=== PATIENT | male | born 1985 | race Caucasian/White ===

== ENCOUNTER 2017-02-10 01:22 | Emergency (ER) | payer MEDICAID ==
[2017-02-10] MEDS ORDERED: NS 1,000 ML IV ONE ×3 (01:26→03:07)
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
[2017-02-10] MEDS ORDERED: IBUPROFEN 800 MG TAB PO ONE (02:01)
[2017-02-10] MEDS ORDERED: ACETAMINOPHEN 500 MG TAB ONE (02:01)
[2017-02-10] MEDS ORDERED: ACETAMINOPHEN 500 MG TAB PO ONE (02:03)
[2017-02-10] MEDS ORDERED: IBUPROFEN 600 MG TAB PO ONE (02:03)
[2017-02-10 02:06] VITALS: BP 126/93; PULSE 110; RESP 16; O2SAT 100
[2017-02-10 02:25] LABS: ANION GAP 34 mEq/L (8-16); CALCIUM 10.4 mg/dL (8.5-10.4); CARBON DIOXIDE 14 mEq/l (22-31); CHLORIDE 87 mEq/L (97-110); CREATININE 0.7 mg/dL (0.7-1.3); GLOMERULAR FILTRATION RATE > 60; POTASSIUM 5.3 mEq/L (3.5-5.2); SODIUM 135 mEq/L (134-144)
[2017-02-10 02:39] LABS: GLUCOSE 797 mg/dL (70-100)
[2017-02-10 02:40] LABS: COLOR PALE YELLOW; LEUKOCYTE ESTERASE,URINE NEGATIVE (NEGATIVE); NITRITE,URINE NEGATIVE (NEGATIVE)
[2017-02-10 02:45] LABS: MUCUS TRACE /lpf (NONE-1+)
[2017-02-10] MEDS ORDERED: INSULIN REGULAR HUMAN 100 UNIT/ML IVP ONE (03:07)
[2017-02-10] MEDS ORDERED: INSULIN REGULAR HUMAN 100 UNIT, COSIGN. REQUIRED 1 EA in NS 100 ML IV ONE (03:07)
[2017-02-10 03:26] LABS: MAGNESIUM 2.4 mg/dL (1.6-2.3)
[2017-02-10 03:52] LABS: B-HYDROXYBUTYRATE 11.6 mmol/L (0.02-0.27)
[2017-02-11] MEDS ORDERED: ONDANSETRON DISINTEGRATING 4 MG TAB PO PRN (01:58)
[2017-02-11] MEDS ORDERED: ONDANSETRON 4 MG/2 ML VIAL IVP PRN (01:58)
[2017-02-11] MEDS ORDERED: ACETAMINOPHEN 325 MG TAB PO PRN (01:58)
[2017-02-11] MEDS ORDERED: NS 1,000 ML IV SCH (02:00)
[2017-02-11 05:01] LABS: ADD DIFF? YES; ADD MORPH? NO; ADD SCAN? NO; ATYPICAL LYMPHOCYTE FLAG 10 (0-99); FRAGMENT RBC FLAG 0 (0-99); HEMATOCRIT 31.1 % (40.0-51.0); HEMOGLOBIN 9.6 g/dL (13.7-17.5); LEFT SHIFT FLG 20 (0-99); LIPEMIA HEMOLYSIS FLAG 80 (0-99); MEAN CELL HEMOGLOBIN 26.9 pg (27.9-34.1); MEAN CELL HEMOGLOBIN CONCENTR. 30.9 g/dL (32.4-36.7); MEAN CELL VOLUME 87.1 fL (81.5-99.8); MEAN PLATELET VOLUME 10.2 fL (8.7-11.7); PLATELET CLUMPS FLAG 0 (0-99); PLATELET COUNT 397 10^3/uL (150-400); RED BLOOD CELL COUNT 3.57 10^6/uL (4.40-6.38); RED CELL DISTRIBUTION WIDTH 14.8 % (11.5-15.2)
[2017-02-11 05:22] LABS: ANION GAP 34 mEq/L (8-16); CALCIUM 8.5 mg/dL (8.5-10.4); CHLORIDE 108 mEq/L (97-110); CREATININE 1.1 mg/dL (0.7-1.3); GLOMERULAR FILTRATION RATE > 60; SODIUM 148 mEq/L (134-144)
[2017-02-11 05:32] LABS: CARBON DIOXIDE 6 mEq/l (22-31); GLUCOSE 516 mg/dL (70-100)
[2017-02-11 05:41] LABS: HYPOCHROMIA 1+
[2017-02-11 05:42] LABS: PLATELET ESTIMATE ADEQUATE (ADEQ)
[2017-02-13] MEDS ORDERED: D50W 25 GM/50 ML SYR IVP PRN (23:01)
[2017-02-14] MEDS ORDERED: INSULIN LISPRO 100 UNIT/ML SC SCH (08:00)
[2017-02-14] MEDS ORDERED: INSULIN GLARGINE 100 UNITS/ML SYRINGE SC SCH (09:00)
== END 2017-02-10 03:32 | disposition left against medical advice (07) ==
LOC: EDUNIT#
DX: R52 Pain, unspecified (principal); E13.10 Other specified diabetes mellitus with ketoacidosis without coma; Z91.040 Latex allergy status; Z79.4 Long term (current) use of insulin
CPT/HCPCS: 80305; J1815

== ENCOUNTER 2017-02-11 00:41 | Inpatient (IN) | payer MEDICAID ==
[2017-02-11] MEDS ORDERED: INSULIN REGULAR HUMAN 100 UNIT/ML IVP ONE (00:54)
[2017-02-11] MEDS ORDERED: INSULIN REGULAR HUMAN 100 UNIT, COSIGN. REQUIRED 1 EA in NS 100 ML IV ONE (00:54)
[2017-02-11] MEDS ORDERED: NS 1,000 ML IV ONE ×4 (00:54→03:30)
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
[2017-02-11 01:07] LABS: ADD DIFF? YES; ADD MORPH? NO; ADD SCAN? NO; ATYPICAL LYMPHOCYTE FLAG 0 (0-99); FRAGMENT RBC FLAG 0 (0-99); HEMATOCRIT 38.1 % (40.0-51.0); HEMOGLOBIN 11.3 g/dL (13.7-17.5); LEFT SHIFT FLG 20 (0-99); LIPEMIA HEMOLYSIS FLAG 70 (0-99); MEAN CELL HEMOGLOBIN CONCENTR. 29.7 g/dL (32.4-36.7); MEAN CELL VOLUME 91.1 fL (81.5-99.8); MEAN PLATELET VOLUME 10.6 fL (8.7-11.7); PLATELET CLUMPS FLAG 0 (0-99); PLATELET COUNT 571 10^3/uL (150-400); RED BLOOD CELL COUNT 4.18 10^6/uL (4.40-6.38); RED CELL DISTRIBUTION WIDTH 15.4 % (11.5-15.2)
[2017-02-11 01:16] LABS: INR 1.07 (0.83-1.16); PROTIME(PATIENT) 13.8 SEC (12.0-15.0)
[2017-02-11 01:17] LABS: APTT 26.7 SEC (23.0-38.0)
[2017-02-11 01:18] LABS: CALCIUM 10.1 mg/dL (8.5-10.4); CHLORIDE 93 mEq/L (97-110); CREATININE 1.4 mg/dL (0.7-1.3); ETHANOL SERUM < 10 mg/dL (0-10); GLOMERULAR FILTRATION RATE 60; SODIUM 141 mEq/L (134-144)
[2017-02-11 01:35] LABS: PLATELET ESTIMATE INCREASED (ADEQ)
[2017-02-11 01:37] LABS: CARBON DIOXIDE < 5 mEq/l (22-31); POTASSIUM 6.9 mEq/L (3.5-5.2)
[2017-02-11 01:38] LABS: GLUCOSE 891 mg/dL (70-100)
--- NOTE | 2017-02-11 02:17 | PDGENHP ---
History and Physical - Chief Complaint Nausea - History of Present Illness 31 yo M w/ T1DM presents with nausea and found to have severe hyperglycemia. Patient was altered and vomited several times today and eventually EMS was called. His BG was undetectably high for EMS. Of note, he was seen in the ED yesterday but left AMA prior to receiving insulin or fluids. Work-up in the ED notable from severe hyperglycemia and AGMA in a clinical picture c/w DKA, most likely due to lack of insulin as patient has not had insulin for 3 days. On my evaluation patient is somnolent and not able to provide additional history. History Information - Allergies/Home Medication List Allergies/Adverse Reactions: escitalopram [From Lexapro] Allergy (Verified 02/10/17 02:24) latex Allergy (Verified 02/10/17 02:24) quetiapine [From Seroquel] Allergy (Verified 02/10/17 02:24) Home Medications: Insulin Aspart [novoLOG] unit SC AC 02/10/17 [Last Taken Unknown] Insulin Detemir [Levemir] 100 unit SQ 02/10/17 [Last Taken Unknown] I have personally reviewed and updated: family history, medical history - Past Medical History diabetes type 1 - Social History Smoking Status: Unknown if ever smoked Drug Use: Other (Amphetamines on Utox) Review of Systems Review of Systems: ROS: 10pt was reviewed & negative except for what was stated in HPI & below Physical Exam Physical Exam: Temp Pulse Resp BP Pulse Ox 37.0 C 121 H 24 H 105/62 100 02/11/17 00:45 02/11/17 00:45 02/11/17 00:45 02/11/17 00:45 02/11/17 00:55 Constitutional: no apparent distress, other (Somnolent) Eyes: PERRL, EOMI Ears, Nose, Mouth, Throat: moist mucous membranes, no oral mucosal ulcers Cardiovascular: no murmur, rub, or gallop, tachycardia Respiratory: no respiratory distress, no rales or rhonchi Gastrointestinal: normoactive bowel sounds, soft, non-tender abdomen Skin: other (Several necrotic appearing lesions on LE's) Neurologic: sensation intact bilaterally, other (Somnolent) Psychiatric: encephalopathic Lab Data & Imaging Review 02/11/17 00:48 02/11/17 00:48 WBC 24.27 10^3/uL (3.80-9.50) H 02/11/17 00:48 RBC 4.18 10^6/uL (4.40-6.38) L 02/11/17 00:48 Hgb 11.3 g/dL (13.7-17.5) L 02/11/17 00:48 POC Hgb 14.3 gm/dL (13.7-17.5) 10 00:42 Hct 38.1 % (40.0-51.0) L 02/11/17 00:48 POC Hct 42 % (40-51) 02/11/17 00:42 MCV 91.1 fL (81.5-99.8) 02/11/17 00:48 MCH 27.0 pg (27.9-34.1) L 02/11/17 00:48 MCHC 29.7 g/dL (32.4-36.7) L 02/11/17 00:48 RDW 15.4 % (11.5-15.2) H 02/11/17 00:48 Plt Count 571 10^3/uL (150-400) H 02/11/17 00:48 MPV 10.6 fL (8.7-11.7) 02/11/17 00:48 Neut % (Auto) Not Reported 02/11/17 00:48 Lymph % (Auto) Not Reported 02/11/17 00:48 [place] % (Auto) Not Reported 02/11/17 00:48 Eos % (Auto) Not Reported 02/11/17 00:48 Baso % (Auto) Not Reported 02/11/17 00:48 Nucleat RBC Rel Count 0.0 % (0.0-0.2) 02/11/17 00:48 Absolute Neuts (auto) Not Reported 02/11/17 00:48 Absolute Lymphs (auto) Not Reported 02/11/17 00:48 Absolute Monos (auto) Not Reported 02/11/17 00:48 Absolute Eos (auto) Not Reported 02/11/17 00:48 Absolute Basos (auto) Not Reported 02/11/17 00:48 Absolute Nucleated RBC 0.00 10^3/uL (0-0.01) 02/11/17 00:48 Immature Gran % Not Reported 02/11/17 00:48 Seg Neutrophils % 76 % 02/11/17 00:48 Band Neutrophils % 6 % 02/11/17 00:48 Lymphocytes % 11 % 02/11/17 00:48 Monocytes % 6 % 02/11/17 00:48 Basophils % 1 % 02/11/17 00:48 Immature Gran # Not Reported 02/11/17 00:48 Absolute Seg Neuts 18.45 10^/uL (1.70-6.50) H 02/11/17 00:48 Absolute Band Neuts 1.46 10^3/uL (0.00-0.70) H 02/11/17 00:48 Absolute Lymphocytes 2.67 10^3/uL (1.00-3.00) 02/11/17 00:48 Absolute Monocytes 1.46 10^3/uL (0.30-0.80) H 02/11/17 00:48 Absolute Basophils 0.24 10^3/uL (0.02-0.10) H 02/11/17 00:48 RBC/WBC/PLT Morphology NORMAL (NORMAL) 02/11/17 00:48 Platelet Estimate INCREASED (ADEQ) H 02/11/17 00:48 PT 13.8 SEC (12.0-15.0) 02/11/17 00:48 INR 1.07 (0.83-1.16) 02/11/17 00:48 APTT 26.7 SEC (23.0-38.0) 02/11/17 00:48 POC Sodium 134 mEq/L (134-144) 02/11/17 00:42 Sodium 141 mEq/L (134-144) 02/11/17 00:48 POC Potassium 6.5 mEq/L (3.3-5.0) H* 02/11/17 00:42 Potassium 6.9 mEq/L (3.5-5.2) H* 02/11/17 00:48 POC Chloride 102 mEq/L (97-110) 02/11/17 00:42 Chloride 93 mEq/L (97-110) L 02/11/17 00:48 Carbon Dioxide < 5 mEq/l (22-31) L* D 02/11/17 00:48 Anion Gap TNP 02/11/17 00:48 POC BUN 57 mg/dL (7-23) H 02/11/17 00:42 BUN 56 mg/dL (7-23) H 02/11/17 00:48 Creatinine 1.4 mg/dL (0.7-1.3) H D 02/11/17 00:48 POC Creatinine 1.1 mg/dL (0.7-1.3) 02/11/17 00:42 Estimated GFR 60 02/11/17 00:48 Glucose 891 mg/dL (70-100) H* 02/11/17 00:48 POC Glucose > 700 mg/dL (70-100) H* 02/11/17 00:42 Calcium 10.1 mg/dL (8.5-10.4) 02/11/17 00:48 Phosphorus 10.6 mg/dL (2.5-4.5) H D 02/11/17 00:48 Magnesium 3.0 mg/dL (1.6-2.3) H 02/11/17 00:48 Ethyl Alcohol < 10 mg/dL (0-10) 02/11/17 00:48 Visualized and Interpreted Chest x-ray results: Yes Chest X-Ray results: no infiltrate Assessment & Plan Assessment: 31 yo M with T1DM presents w/ DKA. Plan: 1. T1DM w/ acute DKA - Most likely 2/2 insulin deficiency noting patient has not had insulin for 3 days. Initial laboratory work-up notable for BG>800, undetectable CO2, marked leukocytosis, and hyperkalemia. - Admit to ICU w/ DKA protocol 2. Hyperkalemia - Most likely 2/2 insulin deficiency. Will monitor closely while on insulin gtt. - Obtain ECG to evaluate for cardiac complications 3. Leukocytosis - Likely reactive from above, no clear evidence of infection currently but will monitor closely. 4. SEFERINO - Cr 1.4 on admission, likely pre-renal azotemia in setting of severe dehydration from osmolar diuresis. Aggressive IVF and monitor BMP. 5. Acute encephalopathy, suspect metabolic - Likely 2/2 DKA, monitor. Diet - NPO Code - Full Ppx - SCDs Dispo - Admit to ICU, observation status for DKA protocol
[2017-02-11 02:21] LABS: B-HYDROXYBUTYRATE > 18.00 mmol/L (0.02-0.27)
[2017-02-11] MEDS ORDERED: INSULIN REGULAR HUMAN 100 UNIT in NS 100 ML IV SCH (02:30)
[2017-02-11] MEDS ORDERED: INSULIN REGULAR HUMAN 100 UNIT/ML IVP PRN (02:30)
[2017-02-11] MEDS ORDERED: D10W 250 ML PRN HYPOGLYCEMIA IV (02:30)
[2017-02-11] MEDS ORDERED: ONDANSETRON DISINTEGRATING 4 MG TAB PO PRN (02:37)
[2017-02-11] MEDS ORDERED: ONDANSETRON 4 MG/2 ML VIAL IVP PRN (02:37)
[2017-02-11] MEDS ORDERED: D5W 1/2 NS 1,000 ML IV SCH (02:47)
[2017-02-11] MEDS ORDERED: D5W 1,000 ML IV SCH (02:47)
[2017-02-11 03:19] LABS: CALCIUM 8.9 mg/dL (8.5-10.4); CHLORIDE 101 mEq/L (97-110); CREATININE 1.2 mg/dL (0.7-1.3); GLOMERULAR FILTRATION RATE > 60; POTASSIUM 5.8 mEq/L (3.5-5.2); SODIUM 146 mEq/L (134-144)
[2017-02-11 03:33] LABS: CARBON DIOXIDE < 5 mEq/l (22-31)
[2017-02-11 03:34] LABS: GLUCOSE 711 mg/dL (70-100)
[2017-02-11] MEDS ORDERED: PROTOCOL MAGNESIUM 1 DOSE IV PRN (03:50)
[2017-02-11] MEDS ORDERED: PROTOCOL POTASSIUM 1 DOSE MISC PRN ×2 (03:50)
--- NOTE | 2017-02-11 05:04 | CPEKG ---
Heart Rate: 121 RR Interval: 496 P-R Interval: 160 QRSD Interval: 88 QT Interval: 324 QTC Interval: 460 P [place]: 71 QRS [place]: 79 T Wave [place]: 44 EKG Severity - ABNORMAL ECG - EKG Impression: SINUS TACHYCARDIA EKG Impression: PROBABLE LEFT ATRIAL ABNORMALITY EKG Impression: PROBABLE LEFT VENTRICULAR HYPERTROPHY EKG Impression: AGREE WITH ABOVE Electronically Signed By: Solo Beasley 11-Feb-2017 08:16:38
[2017-02-11] MEDS: LORazepam 2 MG/ML INJ IVP PRN (05:09)
[2017-02-11] MEDS: NS 1,000 ML IV SCH ×2 (06:21→07:35)
[2017-02-11 06:27] LABS: COLOR YELLOW; LEUKOCYTE ESTERASE,URINE NEGATIVE (NEGATIVE); NITRITE,URINE NEGATIVE (NEGATIVE)
[2017-02-11 06:30] LABS: MUCUS TRACE /lpf (NONE-1+); RBC,URINE NONE SEEN /hpf (0-3)
[2017-02-11 07:21] LABS: CHOLESTEROL 169 mg/dL (140-200); CHOLESTEROL/HDL RATIO 2.52 RATIO (1.00-4.97); HIGH DENSITY LIPOPROTEIN 67 mg/dL (40-70); MAGNESIUM 2.7 mg/dL (1.6-2.3); NON-HIGH DENSITY LIPOPROTEIN 102 mg/dL (90-129)
[2017-02-11 07:22] LABS: TRIGLYCERIDE 471 mg/dL (40-150)
[2017-02-11 09:34] LABS: ANION GAP 15 mEq/L (8-16); CALCIUM 8.6 mg/dL (8.5-10.4); CARBON DIOXIDE 21 mEq/l (22-31); CHLORIDE 116 mEq/L (97-110); CREATININE 0.8 mg/dL (0.7-1.3); GLOMERULAR FILTRATION RATE > 60; GLUCOSE 129 mg/dL (70-100); POTASSIUM 4.4 mEq/L (3.5-5.2); SODIUM 152 mEq/L (134-144)
[2017-02-11] MEDS ORDERED: D50W 25 GM/50 ML SYR IVP PRN (13:00)
--- NOTE | 2017-02-11 13:08 | HOSPPROG ---
Hospitalist Progress Note Assessment/Plan: 31 yo M with T1DM presents w/ DKA. Plan: #. T1DM (noncompliant) AG closed -start diet -start basal insulin -transfer to floor #. Hypernatremia -cont hypotonic fluids #. Hyperkalemia (resolved) #. Leukocytosis - Likely reactive from above, no clear evidence of infection currently but will monitor closely. #. SEFERINO (resolved) - #. Acute encephalopathy, suspect metabolic - Likely 2/2 DKA, monitor. Diet - NPO Code - Full Ppx - SCDs change to inpatient Subjective: pt seems agitated. not cooperative with exam Objective: Vital Signs Temp Pulse Resp BP Pulse Ox 36.7 C 89 21 H 125/64 H 97 02/11/17 07:33 02/11/17 11:47 02/11/17 11:47 02/11/17 11:47 02/11/17 11:47 Laboratory Results 02/11/17 09:15 02/10/17 02/11/17 02/12/17 05:59 05:59 05:59 Intake Total 4586 1500 Output Total 0 1200 Balance 4586 300 PT 13.8 SEC (12.0-15.0) 02/11/17 00:48 INR 1.07 (0.83-1.16) 02/11/17 00:48 refused exam hiding under bed sheets ICD10 Worksheet Patient Problems: Problems Problem Status Onset DKA (diabetic ketoacidoses) Acute
--- NOTE | 2017-02-11 13:23 | WOCRNPDOC ---
WOCRN Advanced Assessment Note - Skin Integrity Problem, Advanced Assess Right Lower Lateral Leg Dressing Type: Open to Air Exudate Amount: None Exudate Characteristic(s): None Lindsey Wound Tissue: Scarred Lindsey Wound Swelling: None Wound Bed Color: Black Wound Bed Constitution: Stable Eschar Wound Edges: Well Defined Site Odor: None Site Measurement - Head-to-Toe Length X Width X Depth (cm): 2.6cmx1.7cmx 0cm Skin Integrity Problem Comment: Dry, punctate, eschar-filled wound on R lateral lower leg. This was previously documented as a diabetic wound, but appearance is indicative of wound caused by skin popping. This is supported by the extensive, oval and ottawa-shaped scar tissue over this and the other lower leg , indicating that this is an ongoing issue. Patient denies this as the cause, and says the wounds "just popped out." Periwound skin is otherwise intact w/ no swelling or erythema observed. Will order moist wound dressing w/ hydrocolloid dressing to initiate autolysis of this necrotic tissue. Report given to pouring crane operator Joann. Wound care will follow up with patient on Friday 02/16. Right Lower Medial Leg Dressing Type: Open to Air Exudate Amount: None Exudate Characteristic(s): None Lindsey Wound Tissue: Intact Lindsey Wound Swelling: None Wound Bed Color: Black Wound Bed Constitution: Stable Eschar Wound Edges: Punched Out, Well Defined Site Odor: None Site Measurement - Head-to-Toe Length X Width X Depth (cm): [id number] Skin Integrity Problem Comment: Dry, eschar-filled, punctate wound on R lower medial leg, no preiwound erythema or swelling observed. Will initiate same treatment as the other wounds on his lower legs to loosen/remove eschar. Left Lower Medial Leg Dressing Type: Open to Air Exudate Amount: None Exudate Characteristic(s): None Lindsey Wound Tissue: Intact Lindsey Wound Swelling: None Wound Bed Color: Black Wound Bed Constitution: Stable Eschar Wound Edges: Punched Out, Well Defined Site Measurement - Head-to-Toe Length X Width X Depth (cm): 1.5cmx1.2cmx 0cm Skin Integrity Problem Comment: Dry, eschar-filled, punctate wound, consistent in appearance with other wounds on patient's lower extremities. No swelling or erythema noted periwound. Please see note above for tx description.
[2017-02-11] MEDS ORDERED: 1/2 NS 1,000 ML IV SCH (13:30)
--- NOTE | 2017-02-11 13:44 | PDMN ---
Medical Necessity Medical necessity: C/M review: est. > 2 MN LOS for eval and TX of acute and persistent DKA, hyponatremia, , leukocytosis, encephalopathy-suspect metabolic requiring IV Regular Human Iinsulin infusion in ICU, planned 02/11/2017 transfer to medical surgical bed, ongoing IV fluids, transition to basal subcutaneous insulin, start diabetic diet, lab values monitoring, comorbid type 1 insulin dependent diabetes (patient noncompliant) per 02/11/2017 Hospitalist progress note.
[2017-02-11 14:01] LABS: HEMOGLOBIN A1C 12.1 % (4.0-6.0)
[2017-02-11] MEDS: 1/2 NS 1,000 ML IV SCH ×2 (14:04→16:58)
[2017-02-11] MEDS: INSULIN GLARGINE 100 UNITS/ML SYRINGE SC SCH ×2 (14:04→22:07)
--- NOTE | 2017-02-11 17:10 | ASMTCMCOM ---
CM Note CM Note Notes: Pt was admitted with DKA. Hx DM1 and homelessness. Per hospitalist note, pt appeared agitated, refused his exam and hid under the sheets. He left the ED yesterday AMA. CM will follow for any d/c needs. Date Signed: 02/11/2017 05:10 PM Electronically Signed By:MALLORY Kumar
[2017-02-11 17:48] LABS: POTASSIUM 4.1 mEq/L (3.5-5.2)
[2017-02-11] MEDS: ACETAMINOPHEN 325 MG TAB PO PRN (17:58)
[2017-02-11 18:12] LABS: PROCALCITONIN 0.55 ng/mL (0.02-0.10)
[2017-02-11] MEDS: INSULIN LISPRO 100 UNIT/ML SC SCH (19:58)
[2017-02-12] MEDS ORDERED: KETOROLAC 15 MG/1 ML SDV IVP ONE ×2 (03:17→22:37)
[2017-02-12] MEDS: INSULIN GLARGINE 100 UNITS/ML SYRINGE SC SCH ×2 (08:35→20:48)
[2017-02-12] MEDS: INSULIN LISPRO 100 UNIT/ML SC SCH ×3 (08:36→18:05)
[2017-02-12 10:03] LABS: ATYPICAL LYMPHOCYTE FLAG 10 (0-99); FRAGMENT RBC FLAG 0 (0-99); LEFT SHIFT FLG 0 (0-99); LIPEMIA HEMOLYSIS FLAG 80 (0-99); PLATELET CLUMPS FLAG 0 (0-99)
[2017-02-12 10:15] LABS: ANION GAP 5 mEq/L (8-16); CALCIUM 8.4 mg/dL (8.5-10.4); CARBON DIOXIDE 28 mEq/l (22-31); CHLORIDE 104 mEq/L (97-110); CREATININE 0.6 mg/dL (0.7-1.3); GLOMERULAR FILTRATION RATE > 60; GLUCOSE 264 mg/dL (70-100); POTASSIUM 4.9 mEq/L (3.5-5.2); SODIUM 137 mEq/L (134-144)
[2017-02-12 10:36] LABS: % IMMATURE GRANULYOCYTES 0.3 % (0.0-1.1); ABSOLUTE IMMATURE GRANULOCYTES 0.02 10^3/uL (0.00-0.10); ADD DIFF? NO; ADD MORPH? NO; ADD SCAN? NO; ATYPICAL LYMPHOCYTE FLAG 10 (0-99); HEMOGLOBIN 7.7 g/dL (13.7-17.5); LEFT SHIFT FLG 0 (0-99); LIPEMIA HEMOLYSIS FLAG 80 (0-99); MEAN PLATELET VOLUME 9.4 fL (8.7-11.7); PLATELET CLUMPS FLAG 0 (0-99)
[2017-02-12 10:43] LABS: FRAGMENT RBC FLAG 20 (0-99); MEAN CELL HEMOGLOBIN 27.2 pg (27.9-34.1); MEAN CELL VOLUME 82.3 fL (81.5-99.8); RED BLOOD CELL COUNT 2.83 10^6/uL (4.40-6.38); RED CELL DISTRIBUTION WIDTH 15.1 % (11.5-15.2)
[2017-02-12 10:45] LABS: HEMATOCRIT 23.3 % (40.0-51.0); PLATELET COUNT 232 10^3/uL (150-400)
[2017-02-12] MEDS: ACETAMINOPHEN 325 MG TAB PO PRN (13:56)
[2017-02-12] MEDS ORDERED: D50W 25 GM/50 ML SYR IVP PRN (14:29)
[2017-02-12] MEDS ORDERED: INSULIN LISPRO 100 UNIT/ML SC ONE (15:00)
--- NOTE | 2017-02-12 15:09 | HOSPPROG ---
Hospitalist Progress Note Assessment/Plan: 31 yo M with T1DM presents w/ DKA. First encounter, chart reviewed. D/W Fatimah Landin. Plan: #. T1DM (noncompliant) AG closed -eating -basal insulin -SSI -pt is non complaint in the outpt setting #. Hypernatremia -resolved with hydration #. Hyperkalemia (resolved) #. Leukocytosis - Likely reactive from above, no clear evidence of infection currently but will monitor closely. resolved #. Anemia Chronic disease no signs of blood loss pt refusing further workup and evaluation can be seen outpt #. SEFERINO (resolved) - #. Acute encephalopathy, suspect metabolic - Likely 2/2 DKA, monitor. resolved #. Dispo pt medically ready for DC stating SI, consult with Fatimah Landin pt contracted for safety with me but stated other with Fatimah he denied having a plan or having thoughts of self harm to me. Please see Fatimah's note for details placed on a detainer for mental health evaluation await eval and placement suggestions DC to street if cleared by mental health reviewed with RN and vault manager - Full Ppx - SCDs/walking Needs outpatient evaluation of anemia and resources for bloodsugar management usually goes to [facility] in [place] Subjective: Feels crappy. No specific issues. Objective: Vital Signs Temp Pulse Resp BP Pulse Ox 37 C 65 18 108/64 95 02/12/17 07:58 02/12/17 07:58 02/12/17 07:58 02/12/17 07:58 02/12/17 07:58 Laboratory Results 02/12/17 10:27 02/11/17 02/12/17 02/13/17 05:59 05:59 05:59 Intake Total 3198 Output Total 415 Balance 2783 PT 13.8 SEC (12.0-15.0) 02/11/17 00:48 INR 1.07 (0.83-1.16) 02/11/17 00:48 - Physical Exam Constitutional: chronically ill appearing, unkempt, cachectic Eyes: PERRL, anicteric sclera, EOMI Ears, Nose, Mouth, Throat: moist mucous membranes, hearing normal, ears appear normal Cardiovascular: regular rate and rhythym, No JVD, No edema Respiratory: no respiratory distress, no rales or rhonchi, reduced air movement Gastrointestinal: normoactive bowel sounds, No tenderness, No ascites Skin: warm, normal color, No erythema Musculoskeletal: normal joint ROM, no joint effusions, generalized weakness Neurologic: AAOx3 Psychiatric: anxious, agitated, poor insight, poor judgement ICD10 Worksheet Patient Problems: Problems Problem Status Onset DKA (diabetic ketoacidoses) Acute
--- NOTE | 2017-02-12 16:22 | ASMTCMCOM ---
CM Note CM Note Notes: CM spoke w/ Marissa O'Roth regarding d/c POC. Pt has supports through [facility] in [place]. Pt has been non compliant w/ treatment recommendations. Upon going over d/c, pt reported that he is suicidal. CM called Elizabeth from [facility] and was informed to call Fatimah Landin. CM called Fatimah Landin and left a msg. aFtimah Landin evaluated pt and is recommending that pt is put on a retainer. Fatimah Landin contacted Demetrius and Demetrius will call P to come evaluate pt. CM to follow. Date Signed: 02/12/2017 04:21 PM Electronically Signed By:GUICHO Martinez
[2017-02-12] MEDS ORDERED: D50W 25 GM/50 ML VIAL IVP PRN (18:30)
[2017-02-12] MEDS: IBUPROFEN 600 MG TAB PO PRN (18:33)
[2017-02-12 19:05] LABS: POTASSIUM 3.1 mEq/L (3.5-5.2)
[2017-02-12] MEDS ORDERED: POTASSIUM CL 10 MEQ TAB PO ONE (19:37)
[2017-02-12] MEDS ORDERED: POTASSIUM CL 20 MEQ/15 ML UDCUP PO ONE (21:30)
[2017-02-12] MEDS: LORazepam 2 MG/ML INJ IVP PRN (21:38)
[2017-02-13] MEDS: LORazepam 2 MG/ML INJ IVP PRN ×3 (02:38→19:52)
[2017-02-13] MEDS: ACETAMINOPHEN 325 MG TAB PO PRN ×2 (02:39→10:35)
[2017-02-13 06:43] LABS: GLUCOSE 476 mg/dL (70-100); POTASSIUM 5.2 mEq/L (3.5-5.2)
[2017-02-13 07:56] LABS: CALCIUM 8.6 mg/dL (8.5-10.4); CARBON DIOXIDE 28 mEq/l (22-31); CHLORIDE 98 mEq/L (97-110); CREATININE 0.6 mg/dL (0.7-1.3); GLOMERULAR FILTRATION RATE > 60; SODIUM 133 mEq/L (134-144)
[2017-02-13] MEDS: INSULIN LISPRO 100 UNIT/ML SC SCH ×3 (08:01→16:05)
[2017-02-13 09:25] LABS: HEMATOCRIT 28.2 % (40.0-51.0); HEMOGLOBIN 9.2 g/dL (13.7-17.5)
[2017-02-13] MEDS ORDERED: INSULIN LISPRO 100 UNIT/ML SC ONE (09:49)
[2017-02-13] MEDS: INSULIN GLARGINE 100 UNITS/ML SYRINGE SC SCH ×2 (09:53→19:27)
--- NOTE | 2017-02-13 11:09 | HOSPPROG ---
Hospitalist Progress Note Assessment/Plan: 31 yo M with T1DM presents w/ DKA. First encounter, chart reviewed. D/W Fatimah Landin. Plan: #T1DM (noncompliant) AG closed -eating -basal insulin -SSI hyperglycemia is chronic and a result of his poorly controlled diabetes. it is a not a contraindication to transfer to behavioral health Hypernatremia -resolved with hydration Hyperkalemia (resolved) Leukocytosis - Likely reactive from above, no clear evidence of infection currently but will monitor closely. resolved Anemia Chronic disease stable SEFERINO (resolved) - Acute encephalopathy, suspect metabolic - Likely 2/2 DKA, monitor. resolved Dispo pt medically ready for DC stating SI, consult with Fatimah Landin pt contracted for safety with me but stated other with Fatimah he denied having a plan or having thoughts of self harm to me. Please see Fatimah's note for details placed on a detainer for mental health evaluation await eval and placement suggestions DC to street if cleared by mental health reviewed with RN and manager [employer] - Full Ppx - SCDs/walking to behavioral health today > 30 minutes Subjective: on M1. hyperglycemic Objective: Vital Signs Temp Pulse Resp BP Pulse Ox 36.9 C 65 14 130/87 H 94 02/13/17 08:00 02/13/17 08:00 02/13/17 08:00 02/13/17 08:00 02/13/17 08:00 Laboratory Results 02/13/17 09:15 02/13/17 05:42 02/12/17 02/13/17 02/14/17 05:59 05:59 05:59 Intake Total 3198 476 Output Total 415 Balance 2783 476 PT 13.8 SEC (12.0-15.0) 02/11/17 00:48 INR 1.07 (0.83-1.16) 02/11/17 00:48 - Physical Exam Constitutional: no apparent distress, appears nourished Eyes: PERRL, anicteric sclera Ears, Nose, Mouth, Throat: moist mucous membranes, hearing normal Cardiovascular: regular rate and rhythym, no murmur, rub, or gallop Respiratory: no respiratory distress, no rales or rhonchi Gastrointestinal: normoactive bowel sounds, soft, non-tender abdomen Genitourinary: no bladder fullness, No ring in urethra Skin: warm, normal color Musculoskeletal: full muscle strength, no muscle tenderness Neurologic: AAOx3 ICD10 Worksheet Patient Problems: Problems Problem Status Onset DKA (diabetic ketoacidoses) Acute
--- NOTE | 2017-02-13 12:17 | ASMTCMCOM ---
CM Note CM Note Notes: Patient has been medically cleared for discharge. Fatimah Landin has evaluated patient and feels as though he is a suicide risk. [facility] to evaluate. Date Signed: 02/13/2017 12:17 PM Electronically Signed By:Sarah Sims LCSW
[2017-02-13] MEDS: IBUPROFEN 600 MG TAB PO PRN (14:06)
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
[2017-02-13 20:24] VITALS: BP 141/83; PULSE 86; RESP 18; TEMP 99.1; O2SAT 92
== END 2017-02-13 21:20 | disposition home or self-care (01) | DRG 637 ==
LOC: EDUNIT# → INTOOBSV 01:56 → F2N 02:00 → OBSVTOIN 13:30 → F3E 15:08 → F2N 02-12 21:00
PROVIDERS: ADMIT Student in an Organized Health Care Education/Training Program; ATTEND Student in an Organized Health Care Education/Training Program
DX: E10.10 Type 1 diabetes mellitus with ketoacidosis without coma (principal); G93.41 Metabolic encephalopathy; N17.9 Acute kidney failure, unspecified; T38.3X6A Underdosing of insulin and oral hypoglycemic [antidiabetic] drugs, initial encounter; E87.5 Hyperkalemia; E10.65 Type 1 diabetes mellitus with hyperglycemia; Z59.0 Homelessness
CPT/HCPCS: 80305; 82947-QW; 96365; G0480; J1815; J1885; J2060; J2405

== ENCOUNTER 2017-02-13 21:45 | Inpatient (IN) | payer MEDICAID, OTHER ==
[2017-02-13] MEDS ORDERED: NICOTINE POLACRILEX 2 MG GUM B PRN (22:35)
[2017-02-13] MEDS ORDERED: MAGNESIUM HYDROXIDE 30 ML UDCUP PO PRN (22:35)
[2017-02-13] MEDS ORDERED: diphenhydrAMINE 25 MG CAP PO PRN (22:35)
[2017-02-13] MEDS ORDERED: D50W 25 GM/50 ML SYR IVP PRN (23:49)
[2017-02-13] MEDS ORDERED: INSULIN LISPRO 100 UNIT/ML SC ONE (23:57)
[2017-02-14] MEDS: IBUPROFEN 600 MG TAB PO PRN ×2 (02:18→12:30)
[2017-02-14] MEDS: LORazepam 0.5 MG TAB PO PRN ×4 (02:18→20:27)
[2017-02-14] MEDS ORDERED: INSULIN LISPRO 100 UNIT/ML SC SCH (08:00)
[2017-02-14] MEDS: INSULIN GLARGINE 100 UNITS/ML SYRINGE SC SCH ×2 (10:34→20:19)
[2017-02-14] MEDS ORDERED: LEVOTHYROXINE 25 MCG TAB PO SCH (12:00)
[2017-02-14] MEDS: FLUoxetine 10 MG CAP PO SCH (12:30)
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
[2017-02-14] MEDS: INSULIN LISPRO 100 UNIT/ML SC SCH ×2 (16:47→20:25)
[2017-02-14] MEDS: AMOXICILLIN/CLAVULANATE POT 875/125 MG TAB PO SCH ×2 (20:19→23:07)
[2017-02-14] MEDS ORDERED: hydrOXYzine HCL 25 MG TAB PO SCH (21:00)
[2017-02-15] MEDS: LORazepam 0.5 MG TAB PO PRN ×4 (01:45→23:53)
[2017-02-15] MEDS: IBUPROFEN 600 MG TAB PO PRN ×3 (01:46→21:45)
[2017-02-15] MEDS: AMOXICILLIN/CLAVULANATE POT 875/125 MG TAB PO SCH ×2 (08:52→19:43)
[2017-02-15] MEDS: FLUoxetine 10 MG CAP PO SCH (08:52)
[2017-02-15] MEDS: INSULIN LISPRO 100 UNIT/ML SC SCH ×3 (08:53→21:39)
[2017-02-15] MEDS: INSULIN GLARGINE 100 UNITS/ML SYRINGE SC SCH ×2 (08:58→19:43)
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
[2017-02-15] MEDS: ACETAMINOPHEN 325 MG TAB PO PRN ×3 (10:31→23:53)
[2017-02-15] MEDS: OLANZapine DISINTEGR 5 MG TAB PO PRN ×3 (10:31→23:53)
[2017-02-15] MEDS: LEVOTHYROXINE 25 MCG TAB PO SCH (12:22)
--- NOTE | 2017-02-15 13:36 | WOCRNPDOC ---
WOCRN Advanced Assessment Note - Skin Integrity Problem, Advanced Assess Left Lower Medial Leg Dressing Type: Open to Air Exudate Amount: None Integumentary Issue Intervention: Dressing Applied, Hydrogel Applied Matt Wound Tissue: Erythema, Swollen Matt Wound Swelling: Mild Wound Bed Color: Brown Wound Bed Constitution: Scab Wound Edges: Well Defined Site Measurement - Head-to-Toe Length X Width X Depth (cm): [id number] Skin Integrity Problem Comment: Wound bed is dry with circumferential redness and very mild swelling and would benefit from moisture. Cleaned with NS and gauze and skin prep applied to matt wound skin and covered with an allevyn. Patient tolerated well. Patient permits care of these wounds intermittently. Wound care will round again in about a week. Right Lower Medial Leg Dressing Type: Open to Air Exudate Amount: None Integumentary Issue Intervention: Dressing Applied, Hydrogel Applied Matt Wound Tissue: Blanching, Erythema Matt Wound Swelling: None Wound Edges: Well Defined Site Measurement - Head-to-Toe Length X Width X Depth (cm): [id number] Skin Integrity Problem Comment: Wound bed is dry with and would benefit from moisture. Cleaned with NS and gauze and skin prep applied to matt wound skin and covered with an allevyn. Patient tolerated well. Wound care will round again in about a week.
--- NOTE | 2017-02-15 13:36 | WOCRNPDOC ---
WOCRN Advanced Assessment Note - Skin Integrity Problem, Advanced Assess Left Lower Medial Leg Dressing Type: Open to Air Exudate Amount: None Integumentary Issue Intervention: Dressing Applied, Hydrogel Applied Matt Wound Tissue: Erythema, Swollen Matt Wound Swelling: Mild Wound Bed Color: Brown Wound Bed Constitution: Scab Wound Edges: Well Defined Site Measurement - Head-to-Toe Length X Width X Depth (cm): [id number] Skin Integrity Problem Comment: Wound bed is dry with circumferential redness and very mild swelling and would benefit from moisture. Cleaned with NS and gauze and skin prep applied to matt wound skin and covered with an allevyn. Patient tolerated well. Patient permits care of these wounds intermittently. Wound care will round again in about a week. Right Lower Medial Leg Dressing Type: Open to Air Exudate Amount: None Integumentary Issue Intervention: Dressing Applied, Hydrogel Applied Matt Wound Tissue: Blanching, Erythema Matt Wound Swelling: None Wound Edges: Well Defined Site Measurement - Head-to-Toe Length X Width X Depth (cm): 3.0cmx1.2uux5sm Skin Integrity Problem Comment: Wound bed is dry with and would benefit from moisture. Cleaned with NS and gauze and skin prep applied to matt wound skin and covered with an allevyn. Patient tolerated well. Wound care will round again in about a week.
--- NOTE | 2017-02-15 13:36 | WOCRNPDOC ---
WOCRN Advanced Assessment Note - Skin Integrity Problem, Advanced Assess Left Lower Medial Leg Dressing Type: Open to Air Exudate Amount: None Integumentary Issue Intervention: Dressing Applied, Hydrogel Applied Matt Wound Tissue: Erythema, Swollen Matt Wound Swelling: Mild Wound Bed Color: Brown Wound Bed Constitution: Scab Wound Edges: Well Defined Site Measurement - Head-to-Toe Length X Width X Depth (cm): 1.7cmx1.3isz8mb Skin Integrity Problem Comment: Wound bed is dry with circumferential redness and very mild swelling and would benefit from moisture. Cleaned with NS and gauze and skin prep applied to matt wound skin and covered with an allevyn. Patient tolerated well. Patient permits care of these wounds intermittently. Wound care will round again in about a week. Right Lower Medial Leg Dressing Type: Open to Air Exudate Amount: None Integumentary Issue Intervention: Dressing Applied, Hydrogel Applied Matt Wound Tissue: Blanching, Erythema Matt Wound Swelling: None Wound Edges: Well Defined Site Measurement - Head-to-Toe Length X Width X Depth (cm): [id number] Skin Integrity Problem Comment: Wound bed is dry with and would benefit from moisture. Cleaned with NS and gauze and skin prep applied to matt wound skin and covered with an allevyn. Patient tolerated well. Wound care will round again in about a week.
--- NOTE | 2017-02-15 14:14 | SOAPPROG ---
SOAP Progress Note Assessment/Plan: Assessment: Left jaw pain, possible odontogenic infection. * No abnormalities on mandible x-ray. Continue Augmentin 875 p.o. twice daily. Observe for improvement. Diabetes mellitus type 1. Recent diabetic ketoacidosis. Not cooperative with glucose monitoring. * Continue current regimen with insulin glargine 25 units subcutaneous twice daily and insulin as part 5 units three times daily before meals. * Glycemic control may improve if there is an infection in his mouth that is being treated. * Will actively adjust insulin to improve glycemic control if he becomes compliant with blood sugar checks. Wounds over medial ankles bilaterally. * Reviewed note by wound care nurse. * Continue wound care as ordered. 02/15/17 14:14 Subjective: Continues to complain of left lower jaw pain. Refused Augmentin yesterday evening but took it this morning. Refuse blood draws. Refusing blood sugar checks today 30 yesterday evening he had a markedly elevated blood sugar at greater than 350. Objective: Vital Signs Temp Pulse Resp BP Pulse Ox 96 15 135/75 H 92 02/13/17 22:12 02/13/17 22:12 02/13/17 22:12 02/13/17 22:12 Physical Exam - Physical Exam General Appearance: WD/WN, alert, no apparent distress EENT: other (Eating soft food, able to chew normally. Continues to have swelling over the left angle of the mandible.), No pharyngeal erythema, No tonsillar exudate Respiratory: No respiratory distress, No accessory muscle use Neuro/Psych: alert, normal mood/affect, oriented x 3, other (Standing up while eating. No loss of balance.) ICD10 Worksheet Patient Problems: Problems Problem Status Onset Cannabis use disorder, moderate, dependence Acute Insulin dependent diabetes mellitus with complications Acute Major depressive disorder, recurrent episode with mixed features Acute Posttraumatic stress disorder Acute Stimulant use disorder Acute Suicidal ideation Acute DKA (diabetic ketoacidoses) Acute
[2017-02-15] MEDS: BENZOCAINE (ORAJEL) GEL 11.9GM TUBE TP SCH ×2 (16:59→21:39)
[2017-02-15] MEDS: MIRTAZAPINE 15 MG TAB PO SCH (19:43)
[2017-02-16] MEDS: hydrOXYzine HCL 25 MG TAB PO PRN
[2017-02-16] MEDS: AMOXICILLIN/CLAVULANATE POT 875/125 MG TAB PO SCH ×2 (08:15→20:51)
[2017-02-16] MEDS: INSULIN LISPRO 100 UNIT/ML SC SCH ×3 (08:28→20:54)
[2017-02-16] MEDS: INSULIN GLARGINE 100 UNITS/ML SYRINGE SC SCH (08:28)
[2017-02-16] MEDS ORDERED: INSULIN LISPRO 100 UNIT/ML SC ONE (08:30)
--- NOTE | 2017-02-16 08:57 | SOAPPROG ---
SOAP Progress Note Assessment/Plan: Assessment: Major Depressive Disorder, recurrent, severe with mixed features Suicidal ideation Post-Traumatic Stress Disorder Cannabis and Stimulant Use Disorders Homeless, no income, no supports Type I diabetes since childhood Recent diabetic ketoacidosis Skin wounds on ankles Severe diabetic neuropathy in legs with difficulty ambulating, uses a walker Dental infection Recent hyponatremia Cooperating with glucometers and insulin but refusing blood draws [employer] with chronic suicidal ideation versus Malingering to avoid homelessness Patient admitted on M1 hold from [facility] for SI to walk into traffic or overdose on insulin. Patient now voluntary. Patient has a history of recurrent substance abuse and outpatient non- compliance with insulin, medical care, and mental health care despite numerous ER visits and hospitalizations in past year for diabetic ketoacidosis and suicidal ideation; has severe medical and social stressors. Patient has continued severe dysphoria, irritability, hopelessness, and suicidal thoughts. Patient has been refusing groups and refusing to meet with therapist for safety planning. Patient has marked interpersonal sensitivity, help rejecting, and oppositional/ inappropriate anger on unit. Patient is guarded, circumstantial, and evasive. Plan: Continue Remeron 15mg PO QHS for depression. Discontinue PRN Zyprexa and Ativan Continue Hydroxyzine 25mg [id number] PRN anxiety Continue Augmentin for probable dental infection Glucometer BID Continue insulin regimen - BID long acting insulin, TID short acting insulin with meals Patient seen by wound care nurse and hospitalist yesterday Monitor behavior, risk of self-harm, mood/affect Patient has a walker. Will request PT evaluation. Suicidal precautions. Explore possible medical respite options if symptoms stable over weekend 02/16/17 08:56 02/16/17 09:01 Subjective: "I don't want to talk to you" Patient reports continuing to feel depressed and tired and having jaw pain. Reports chronic SI due to homelessness. Reviewed records from [facility] with patient: ER/inpatient at [place] 01/13/17, 01/15/17, [facility] 01/06/2017, [facility] 11/29/16, [facility] 08/2016, [facility] 05/2016, [facility] 2016. Patient admits to chronic non-compliance with outpatient MH treatment, chronic non-compliance with outpatient medical care and insulin, and chronic substance abuse - primarily methamphetamine. Reports he is willing to go into a medical respite program if depression and medical symptoms improve but doesn' t have an ID. Objective: Vital Signs Temp Pulse Resp BP Pulse Ox 36.7 C 92 17 138/69 H 93 02/16/17 06:00 02/16/17 06:00 02/16/17 06:00 02/16/17 06:00 02/16/17 06:00 Alert tired appearing WM, thin, lying in bed. Speech RRR few words. Mood ' depressed' Affect guarded, briefly irritable. Thoughts briefly organized but evasive, circumstantial answers. Reports chronic SI related to homelessness, no current plan. Denies HI or AH. No evident delusions. Limited insight. Questionable judgment. - Time Spent With Patient Time Spent With Patient: 30 minutes - Pending Discharge Pending Discharge Within 24 Hours: No Pending Discharge Within 48 Hours: No ICD10 Worksheet Patient Problems: Problems Problem Status Onset Cannabis use disorder, moderate, dependence Acute Insulin dependent diabetes mellitus with complications Acute Major depressive disorder, recurrent episode with mixed features Acute Posttraumatic stress disorder Acute Stimulant use disorder Acute Suicidal ideation Acute DKA (diabetic ketoacidoses) Acute
--- NOTE | 2017-02-16 09:22 | SOAPPROG ---
SOAP Progress Note Assessment/Plan: Assessment: Left jaw pain, possible odontogenic infection. * No abnormalities on mandible x-ray. Continue Augmentin 875 p.o. twice daily. Observe for improvement. Diabetes mellitus type 1. Recent diabetic ketoacidosis. Now cooperative with glucose monitoring. * Increase insulin glargine from 25 units subcutaneous twice daily to 25 units in the a.m. and 30 units at HS. Plan to continue to increase HS insulin glargine until fasting blood sugar is below 120 and ideally approximately 100. * Increase insulin aspart from 5 units to 8 units three times daily before meals. * Prefer to optimize glycemic control without using a sliding scale at least until his blood sugars are closer to target. Wounds over medial ankles bilaterally. * Reviewed note by wound care nurse. * Continue wound care as ordered. 02/16/17 09:19 Subjective: Reviewed blood sugars and adjusted insulin. He is now compliant with blood sugar checks and insulin dosing. Objective: Vital Signs Temp Pulse Resp BP Pulse Ox 36.7 C 92 17 138/69 H 93 02/16/17 06:00 02/16/17 06:00 02/16/17 06:00 02/16/17 06:00 02/16/17 06:00 ICD10 Worksheet Patient Problems: Problems Problem Status Onset Cannabis use disorder, moderate, dependence Acute Insulin dependent diabetes mellitus with complications Acute Major depressive disorder, recurrent episode with mixed features Acute Posttraumatic stress disorder Acute Stimulant use disorder Acute Suicidal ideation Acute DKA (diabetic ketoacidoses) Acute
[2017-02-16] MEDS: BENZOCAINE (ORAJEL) GEL 11.9GM TUBE TP SCH ×3 (12:11→20:54)
[2017-02-16] MEDS: LEVOTHYROXINE 25 MCG TAB PO SCH (12:11)
[2017-02-16] MEDS: MIRTAZAPINE 15 MG TAB PO SCH (20:51)
[2017-02-16] MEDS ORDERED: INSULIN GLARGINE 100 UNITS/ML SYRINGE SC SCH (21:00)
[2017-02-17] MEDS: ONDANSETRON DISINTEGRATING 4 MG TAB PO PRN ×5 (03:22→20:29)
[2017-02-17] MEDS ORDERED: D50W 25 GM/50 ML SYR IVP PRN (07:45)
--- NOTE | 2017-02-17 07:48 | HOSPPROG ---
Hospitalist Progress Note Assessment/Plan: #Type 1 DM with hyperglycemia he denies drinking much juice -suggest glucerna shakes with difficulty eating from mouth infection -increase Glargine 30unit BID, decreased scheduled meal insulin with addition of SSI to assess true needs. #Left jaw pain: afebrile. Mandible xray ok. Augmentin #Leg wounds: wound care Please call with questions Subjective: pain in left jaw. No F/C/s. had small amount of juice yesterday Objective: Vital Signs Temp Pulse Resp BP Pulse Ox 36.5 C 80 16 155/86 H 96 02/17/17 06:00 02/17/17 06:00 02/17/17 06:00 02/17/17 06:00 02/17/17 06:00 - Physical Exam Constitutional: no apparent distress Eyes: PERRL Ears, Nose, Mouth, Throat: moist mucous membranes, other (mild swelling left jaw. Poor dentition) Cardiovascular: regular rate and rhythym Respiratory: no respiratory distress Gastrointestinal: normoactive bowel sounds Genitourinary: no bladder fullness Skin: warm Musculoskeletal: full muscle strength Neurologic: AAOx3, CN II-XII Intact Psychiatric: flat affect ICD10 Worksheet Patient Problems: Problems Problem Status Onset Cannabis use disorder, moderate, dependence Acute Insulin dependent diabetes mellitus with complications Acute Major depressive disorder, recurrent episode with mixed features Acute Posttraumatic stress disorder Acute Stimulant use disorder Acute Suicidal ideation Acute DKA (diabetic ketoacidoses) Acute
[2017-02-17] MEDS ORDERED: INSULIN GLARGINE 100 UNITS/ML SYRINGE SC SCH (09:00)
[2017-02-17] MEDS: INSULIN GLARGINE 100 UNITS/ML SYRINGE SC SCH ×2 (09:09→20:42)
[2017-02-17] MEDS: BENZOCAINE (ORAJEL) GEL 11.9GM TUBE TP SCH ×3 (09:10→20:41)
[2017-02-17] MEDS: AMOXICILLIN/CLAVULANATE POT 875/125 MG TAB PO SCH ×3 (09:10→20:41)
[2017-02-17] MEDS: INSULIN LISPRO 100 UNIT/ML SC SCH (09:10)
[2017-02-17] MEDS: LEVOTHYROXINE 25 MCG TAB PO SCH (10:13)
[2017-02-17] MEDS ORDERED: INSULIN REGULAR HUMAN 100 UNIT/ML SC SCH ×2 (11:30→16:30)
--- NOTE | 2017-02-17 12:34 | SOAPPROG ---
SOAP Progress Note Assessment/Plan: Assessment: 31yo SWM, voluntary.with depr, subst use. chronic noncompliance, multiple ER and inpt stays for meth use, chronic SI and DKA with insulin noncompliance. 02/17/17 15:07 per staff, slept 7.5hr. has been nauseated today, refused breakfast and AM antibiotic b/c nausea. not given am insulin (short acting) b/c didn't eat bkfst. took prn zofran. elev AM glc. hospitalist already came by this am. PT eval pending for today for walker. on eval, pt lying in bed in darkened room, resting. calm. cooperative with interview. soft-spoken. good eye contact. nml speech. states no appetite b/c nausea. doesn't feel well. no other complaints. would like to take bath. has not been attending groups but agreed to start going to some when feeling better. has some concerns about discharge. states used to use a walker when in [place], not since, and has been in [place] x 11yrs. denied feeling depressed/hopeless/helpless or suicidal. no thoughts to harm others.did not appear responding to internal stim. denied psychotic sxs. plans to stay in [place] for now, altho had been with services though [facility] in [place]. denied medication s/e to remeron, but feeling ABXs may be causing nausea, now not eating b/c nauseated and so refusing abx PLAN: -cont Remeron 15mg qhs -discussed importance of ABX compliance, altho may be contributing to nausea. discussed with hospitalist- plan offer zofran 4mg q4hr prn to keep ahead of nausea, allow for eating/drinking (also risk for DKA if dehydration), and for compliance w/abx, altho may also add prn promethazine, or ativan. -insulin adjustments made, labs ordered per hospitalist (appreciate consultation !) -Rx written for walker as per PT recommendation Addendum: -briefly ordered ativan prn, but will d/c due to hx subst use. has prn hydroxyzine he has not tried yet. Objective: Vital Signs Temp Pulse Resp BP Pulse Ox 36.5 C 80 16 155/86 H 96 02/17/17 06:00 02/17/17 06:00 02/17/17 06:00 02/17/17 06:00 02/17/17 06:00 Medications Generic Name Dose Route Start Last Admin Trade Name Kathleen PRN Reason Stop Dose Admin Lorazepam 0.5 - 1 mg 02/11/17 02:37 02/13/17 13:30 Ativan Injection IVP 08/10/17 02:36 1 mg Q2H PRN Anxiety, Unable to Take PO Insulin Glargine 25 units 02/11/17 13:15 02/13/17 09:53 Lantus Syringe SC 08/10/17 13:14 25 units BID [facility] Insulin Human Lispro 0 unit 02/12/17 18:00 02/13/17 16:05 Humalog Lispro SC 08/11/17 17:59 4 units TIDMEAL [facility] Protocol Amoxicillin/Clavulanate Potassium 875 mg 02/14/17 21:00 02/17/17 11:07 Augmentin 875mg PO 03/16/17 20:59 875 mg BID [facility] Protocol Levothyroxine Sodium 25 mcg 02/15/17 10:00 02/17/17 10:13 Synthroid PO 08/13/17 11:59 Not Given DAILY@1000 [facility] Hydroxyzine HCl 25 mg 02/15/17 09:10 02/16/17 00:00 Hydroxyzine Hcl PO 08/14/17 09:59 25 mg Q4 PRN Anxiety Mirtazapine 15 mg 02/15/17 21:00 02/16/17 20:51 Remeron PO 08/14/17 20:59 15 mg HS [facility] Benzocaine 1 malini 02/15/17 16:00 02/17/17 09:10 Orajel TP 08/14/17 15:59 Not Given TID [facility] Ondansetron HCl 4 mg 02/16/17 23:19 02/17/17 09:09 Zofran Odt PO 08/15/17 23:18 4 mg Q6HRS PRN Nausea Insulin Glargine 30 units 02/17/17 09:00 02/17/17 09:09 Lantus Syringe SC 08/16/17 08:59 30 units BID [facility] Insulin Human Lispro 5 unit 02/17/17 07:45 02/17/17 09:10 Humalog Lispro SC 08/13/17 15:59 Not Given TID [facility] Insulin Human Regular 0 unit 02/17/17 11:30 02/17/17 12:08 Humulin R SC 08/16/17 11:29 6 units ACHS [facility] Protocol Discontinued Medications Generic Name Dose Route Start Last Admin Trade Name Kathleen PRN Reason Stop Dose Admin Insulin Human Lispro 6 unit 02/13/17 09:49 02/13/17 10:01 Humalog Lispro SC 02/13/17 09:50 6 units ONCE ONE Selected Entries 02/13/17 08:00 Heart Rate 65 Respiratory 14 Rate O2 Sat (%) 94 Temperature (C) 36.9 C Blood Pressure 130/87 H O2 Delivery Room Air Mode - Time Spent With Patient Time Spent With Patient: 35min - Pending Discharge Pending Discharge Within 24 Hours: No Pending Discharge Within 48 Hours: No ICD10 Worksheet Patient Problems: Problems Problem Status Onset Cannabis use disorder, moderate, dependence Acute Insulin dependent diabetes mellitus with complications Acute Major depressive disorder, recurrent episode with mixed features Acute Posttraumatic stress disorder Acute Stimulant use disorder Acute Suicidal ideation Acute DKA (diabetic ketoacidoses) Acute Dehydration Acute Vomiting Acute
--- NOTE | 2017-02-17 12:34 | SOAPPROG ---
SOAP Progress Note Assessment/Plan: Assessment: 31yo SWM, voluntary.with depr, subst use. chronic noncompliance, multiple ER and inpt stays for meth use, chronic SI and DKA with insulin noncompliance. 02/17/17 15:07 per staff, slept 7.5hr. has been nauseated today, refused breakfast and AM antibiotic b/c nausea. not given am insulin (short acting) b/c didn't eat bkfst. took prn zofran. elev AM glc. hospitalist already came by this am. PT eval pending for today for walker. on eval, pt lying in bed in darkened room, resting. calm. cooperative with interview. soft-spoken. good eye contact. nml speech. states no appetite b/c nausea. doesn't feel well. no other complaints. would like to take bath. has not been attending groups but agreed to start going to some when feeling better. has some concerns about discharge. states used to use a walker when in [place], not since, and has been in [place] x 11yrs. denied feeling depressed/hopeless/helpless or suicidal. no thoughts to harm others.did not appear responding to internal stim. denied psychotic sxs. plans to stay in [place] for now, altho had been with services though [facility] in [place]. denied medication s/e to remeron, but feeling ABXs may be causing nausea, now not eating b/c nauseated and so refusing abx PLAN: -cont Remeron 15mg qhs -discussed importance of ABX compliance, altho may be contributing to nausea. discussed with hospitalist- plan offer zofran 4mg q4hr prn to keep ahead of nausea, allow for eating/drinking (also risk for DKA if dehydration), and for compliance w/abx, altho may also add prn promethazine, or ativan. -insulin adjustments made, labs ordered per hospitalist (appreciate consultation !) -Rx written for walker as per PT recommendation Addendum: -briefly ordered ativan prn, but will d/c due to hx subst use. has prn hydroxyzine he has not tried yet. Objective: Vital Signs Temp Pulse Resp BP Pulse Ox 36.5 C 80 16 155/86 H 96 02/17/17 06:00 02/17/17 06:00 02/17/17 06:00 02/17/17 06:00 02/17/17 06:00 Medications Generic Name Dose Route Start Last Admin Trade Name Ktahleen PRN Reason Stop Dose Admin Lorazepam 0.5 - 1 mg 02/11/17 02:37 02/13/17 13:30 Ativan Injection IVP 08/10/17 02:36 1 mg Q2H PRN Anxiety, Unable to Take PO Insulin Glargine 25 units 02/11/17 13:15 02/13/17 09:53 Lantus Syringe SC 08/10/17 13:14 25 units BID [facility] Insulin Human Lispro 0 unit 02/12/17 18:00 02/13/17 16:05 Humalog Lispro SC 08/11/17 17:59 4 units TIDMEAL [facility] Protocol Amoxicillin/Clavulanate Potassium 875 mg 02/14/17 21:00 02/17/17 11:07 Augmentin 875mg PO 03/16/17 20:59 875 mg BID [facility] Protocol Levothyroxine Sodium 25 mcg 02/15/17 10:00 02/17/17 10:13 Synthroid PO 08/13/17 11:59 Not Given DAILY@1000 [facility] Hydroxyzine HCl 25 mg 02/15/17 09:10 02/16/17 00:00 Hydroxyzine Hcl PO 08/14/17 09:59 25 mg Q4 PRN Anxiety Mirtazapine 15 mg 02/15/17 21:00 02/16/17 20:51 Remeron PO 08/14/17 20:59 15 mg HS [facility] Benzocaine 1 malini 02/15/17 16:00 02/17/17 09:10 Orajel TP 08/14/17 15:59 Not Given TID [facility] Ondansetron HCl 4 mg 02/16/17 23:19 02/17/17 09:09 Zofran Odt PO 08/15/17 23:18 4 mg Q6HRS PRN Nausea Insulin Glargine 30 units 02/17/17 09:00 02/17/17 09:09 Lantus Syringe SC 08/16/17 08:59 30 units BID [facility] Insulin Human Lispro 5 unit 02/17/17 07:45 02/17/17 09:10 Humalog Lispro SC 08/13/17 15:59 Not Given TID [facility] Insulin Human Regular 0 unit 02/17/17 11:30 02/17/17 12:08 Humulin R SC 08/16/17 11:29 6 units ACHS [facility] Protocol Discontinued Medications Generic Name Dose Route Start Last Admin Trade Name Kathleen PRN Reason Stop Dose Admin Insulin Human Lispro 6 unit 02/13/17 09:49 02/13/17 10:01 Humalog Lispro SC 02/13/17 09:50 6 units ONCE ONE Selected Entries 02/13/17 08:00 Heart Rate 65 Respiratory 14 Rate O2 Sat (%) 94 Temperature (C) 36.9 C Blood Pressure 130/87 H O2 Delivery Room Air Mode - Time Spent With Patient Time Spent With Patient: 35min - Pending Discharge Pending Discharge Within 24 Hours: No Pending Discharge Within 48 Hours: No ICD10 Worksheet Patient Problems: Problems Problem Status Onset Cannabis use disorder, moderate, dependence Acute Insulin dependent diabetes mellitus with complications Acute Major depressive disorder, recurrent episode with mixed features Acute Posttraumatic stress disorder Acute Stimulant use disorder Acute Suicidal ideation Acute DKA (diabetic ketoacidoses) Acute Dehydration Acute Vomiting Acute
--- NOTE | 2017-02-17 12:34 | SOAPPROG ---
SOAP Progress Note Assessment/Plan: Assessment: 31yo SWM, voluntary.with depr, subst use. chronic noncompliance, multiple ER and inpt stays for meth use, chronic SI and DKA with insulin noncompliance. 02/17/17 15:07 per staff, slept 7.5hr. has been nauseated today, refused breakfast and AM antibiotic b/c nausea. not given am insulin (short acting) b/c didn't eat bkfst. took prn zofran. elev AM glc. hospitalist already came by this am. PT eval pending for today for walker. on eval, pt lying in bed in darkened room, resting. calm. cooperative with interview. soft-spoken. good eye contact. nml speech. states no appetite b/c nausea. doesn't feel well. no other complaints. would like to take bath. has not been attending groups but agreed to start going to some when feeling better. has some concerns about discharge. states used to use a walker when in [place], not since, and has been in [place] x 11yrs. denied feeling depressed/hopeless/helpless or suicidal. no thoughts to harm others.did not appear responding to internal stim. denied psychotic sxs. plans to stay in [place] for now, altho had been with services though [facility] in [place]. denied medication s/e to remeron, but feeling ABXs may be causing nausea, now not eating b/c nauseated and so refusing abx PLAN: -cont Remeron 15mg qhs -discussed importance of ABX compliance, altho may be contributing to nausea. discussed with hospitalist- plan offer zofran 4mg q4hr prn to keep ahead of nausea, allow for eating/drinking (also risk for DKA if dehydration), and for compliance w/abx, altho may also add prn promethazine, or ativan. -insulin adjustments made, labs ordered per hospitalist (appreciate consultation !) -Rx written for walker as per PT recommendation Addendum: -briefly ordered ativan prn, but will d/c due to hx subst use. has prn hydroxyzine he has not tried yet. Objective: Vital Signs Temp Pulse Resp BP Pulse Ox 36.5 C 80 16 155/86 H 96 02/17/17 06:00 02/17/17 06:00 02/17/17 06:00 02/17/17 06:00 02/17/17 06:00 Medications Generic Name Dose Route Start Last Admin Trade Name Kathleen PRN Reason Stop Dose Admin Lorazepam 0.5 - 1 mg 02/11/17 02:37 02/13/17 13:30 Ativan Injection IVP 08/10/17 02:36 1 mg Q2H PRN Anxiety, Unable to Take PO Insulin Glargine 25 units 02/11/17 13:15 02/13/17 09:53 Lantus Syringe SC 08/10/17 13:14 25 units BID [facility] Insulin Human Lispro 0 unit 02/12/17 18:00 02/13/17 16:05 Humalog Lispro SC 08/11/17 17:59 4 units TIDMEAL [facility] Protocol Amoxicillin/Clavulanate Potassium 875 mg 02/14/17 21:00 02/17/17 11:07 Augmentin 875mg PO 03/16/17 20:59 875 mg BID [facility] Protocol Levothyroxine Sodium 25 mcg 02/15/17 10:00 02/17/17 10:13 Synthroid PO 08/13/17 11:59 Not Given DAILY@1000 [facility] Hydroxyzine HCl 25 mg 02/15/17 09:10 02/16/17 00:00 Hydroxyzine Hcl PO 08/14/17 09:59 25 mg Q4 PRN Anxiety Mirtazapine 15 mg 02/15/17 21:00 02/16/17 20:51 Remeron PO 08/14/17 20:59 15 mg HS [facility] Benzocaine 1 malini 02/15/17 16:00 02/17/17 09:10 Orajel TP 08/14/17 15:59 Not Given TID [facility] Ondansetron HCl 4 mg 02/16/17 23:19 02/17/17 09:09 Zofran Odt PO 08/15/17 23:18 4 mg Q6HRS PRN Nausea Insulin Glargine 30 units 02/17/17 09:00 02/17/17 09:09 Lantus Syringe SC 08/16/17 08:59 30 units BID [facility] Insulin Human Lispro 5 unit 02/17/17 07:45 02/17/17 09:10 Humalog Lispro SC 08/13/17 15:59 Not Given TID [facility] Insulin Human Regular 0 unit 02/17/17 11:30 02/17/17 12:08 Humulin R SC 08/16/17 11:29 6 units ACHS [facility] Protocol Discontinued Medications Generic Name Dose Route Start Last Admin Trade Name Kathleen PRN Reason Stop Dose Admin Insulin Human Lispro 6 unit 02/13/17 09:49 02/13/17 10:01 Humalog Lispro SC 02/13/17 09:50 6 units ONCE ONE Selected Entries 02/13/17 08:00 Heart Rate 65 Respiratory 14 Rate O2 Sat (%) 94 Temperature (C) 36.9 C Blood Pressure 130/87 H O2 Delivery Room Air Mode - Time Spent With Patient Time Spent With Patient: 35min - Pending Discharge Pending Discharge Within 24 Hours: No Pending Discharge Within 48 Hours: No ICD10 Worksheet Patient Problems: Problems Problem Status Onset Cannabis use disorder, moderate, dependence Acute Insulin dependent diabetes mellitus with complications Acute Major depressive disorder, recurrent episode with mixed features Acute Posttraumatic stress disorder Acute Stimulant use disorder Acute Suicidal ideation Acute DKA (diabetic ketoacidoses) Acute Dehydration Acute Vomiting Acute
[2017-02-17] MEDS ORDERED: ONDANSETRON DISINTEGRATING 4 MG TAB PO PRN (14:53)
[2017-02-17] MEDS ORDERED: D50W 25 GM/50 ML VIAL IVP PRN (16:09)
[2017-02-17] MEDS ORDERED: INSULIN LISPRO 100 UNIT/ML SC SCH (18:00)
[2017-02-17] MEDS: MIRTAZAPINE 15 MG TAB PO SCH (20:29)
[2017-02-17] MEDS ORDERED: LORazepam 0.5 MG TAB PO PRN (21:29)
[2017-02-18] MEDS: INSULIN LISPRO 100 UNIT/ML SC SCH ×4 (08:00→17:35)
[2017-02-18] MEDS: ONDANSETRON DISINTEGRATING 4 MG TAB PO PRN (08:25)
[2017-02-18] MEDS: AMOXICILLIN/CLAVULANATE POT 875/125 MG TAB PO SCH (10:25)
[2017-02-18] MEDS: LEVOTHYROXINE 25 MCG TAB PO SCH (10:25)
[2017-02-18] MEDS: BENZOCAINE (ORAJEL) GEL 11.9GM TUBE TP SCH ×2 (11:07→17:34)
--- NOTE | 2017-02-18 14:16 | SOAPPROG ---
SOAP Progress Note Assessment/Plan: Assessment: 31yo SWM, voluntary.with depr, subst use. chronic noncompliance, multiple ER and inpt stays for meth use, chronic SI and DKA with insulin noncompliance. 02/17/17 15:07 per staff, slept 7.5hr. has been nauseated today, refused breakfast and AM antibiotic b/c nausea. not given am insulin (short acting) b/c didn't eat bkfst. took prn zofran. elev AM glc. hospitalist already came by this am. PT eval pending for today for walker. on eval, pt lying in bed in darkened room, resting. calm. cooperative with interview. soft-spoken. good eye contact. nml speech. states no appetite b/c nausea. doesn't feel well. no other complaints. would like to take bath. has not been attending groups but agreed to start going to some when feeling better. has some concerns about discharge. states used to use a walker when in [place], not since, and has been in [place] x 11yrs. denied feeling depressed/hopeless/helpless or suicidal. no thoughts to harm others.did not appear responding to internal stim. denied psychotic sxs. plans to stay in [place] for now, altho had been with services though [facility] in [place]. denied medication s/e to remeron, but feeling ABXs may be causing nausea, now not eating b/c nauseated and so refusing abx PLAN: -cont Remeron 15mg qhs -discussed importance of ABX compliance, altho may be contributing to nausea. discussed with hospitalist- plan offer zofran 4mg q4hr prn to keep ahead of nausea, allow for eating/drinking (also risk for DKA if dehydration), and for compliance w/abx, altho may also add prn promethazine, or ativan. -insulin adjustments made, labs ordered per hospitalist (appreciate consultation !) -Rx written for walker as per PT recommendation Addendum: -briefly ordered ativan prn, but will d/c due to hx subst use. has prn hydroxyzine he has not tried yet. 02/18/17 16:00 per staff, slept 8.5hr. +nausea. ate some yogurt. +vomited. refused ABXs. glc 108 this AM. all insulin held. initially irritable on interview this AM. c/o being persistently interrupted when trying to sleep and not feeling well. refused glc check and abxs. set limit on this behavior, if not allowing care for mental health or medical to perhaps prefer just f/u with outpt. given some options, and pt responded more positively and agreeably. requests bath, states this helps nausea... (? cannabinoid hyperemesis syndrome). asked for incr meds for sleep at hs. states ativan does NOT work, nor vistaril, nor melatonin etc. also feels promethazine (tried on med floor) and zofran not helping. tried to eat some during lunch. vomited. allowed labs, RN unable to obtain. took bath, not hot enough. agreed to ED txf. became cooperative with staff, more visible in milieu as attempted to eat small portions during day, using walker to ambulate, in behav control. denied si/hi or psychotic sxs. mood "I don't feel good", affect congruent. thoughts linear, no delusions noted. i/j impaired. PLAN: -maintained communication w/hospitalist periodically throughout day to manage pt sxs and f/u glc. Ultimately it was felt necessary to txf pt to ED for IV hydration and labs. hospitalist adjusted lantus dosing. -consider cannabinoid hyperemesis syndrome (cyclical n/v, relieved w/ hot baths ) as contributing -has not been subst-seeking on unit and denies cravings. declines ativan prn. -consider ST, OT . may benefit ideally from placement in structured setting until with prolonged period of stability. has chronic poor self-care, already w/ neuropathy. seems with limited indep life skills. question pt baseline cognition , intellect. 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 question whether other congenital/developmental issues? unsure of pt ability to grasp importance of glc mgmt. presently seems regressed, concrete thoughts, poor problem-solving. certainly also with axis 2. has been on his own since "my parents left me" at 17, on his own ever since. medical respite with dual dx f/u and case mgmt possibly only options. likely would have more services in [place] but wants to stay in [place]. -asked for med adjustment at hs. Agreed to incr Remeron to 30mg, add Melatonin 6mg hs prn. Objective: Vital Signs Temp Pulse Resp BP Pulse Ox 36.5 C 80 16 155/86 H 96 02/17/17 06:00 02/17/17 06:00 02/17/17 06:00 02/17/17 06:00 02/17/17 06:00 - Time Spent With Patient Time Spent With Patient: 35min - Pending Discharge Pending Discharge Within 24 Hours: No Pending Discharge Within 48 Hours: No ICD10 Worksheet Patient Problems: Problems Problem Status Onset Cannabis use disorder, moderate, dependence Acute Insulin dependent diabetes mellitus with complications Acute Major depressive disorder, recurrent episode with mixed features Acute Posttraumatic stress disorder Acute Stimulant use disorder Acute Suicidal ideation Acute DKA (diabetic ketoacidoses) Acute Dehydration Acute Vomiting Acute
[2017-02-18] MEDS: PROCHLORPERAZINE MALEATE 10 MG TAB PO PRN (14:39)
--- NOTE | 2017-02-18 15:25 | HOSPPROG ---
Hospitalist Progress Note Assessment/Plan: I spoke with Dr. An Saunders via phone several times today in regards to hyperglycemia. Did not exam today. S: still having N/V. Refusing lab draws and oral abx. POC glucose: 109, 202, 311 #Type 1 DM with hyperglycemia -reduce evening dose of glargine to 10 units, SSI -need BMP to evaluate for gap, CBC. #Nausea/vomiting: may be due to hyperglycemia vs abx. PRN compazine, Zofran. #Left jaw pain: afebrile. Mandible xray ok. Augmentin #Leg wounds: wound care Disp: if not tolerating PO, at risk for DKA. Consider ER transfer for labs and IVFs Objective: Vital Signs Temp Pulse Resp BP Pulse Ox 36.5 C 80 16 155/86 H 96 02/17/17 06:00 02/17/17 06:00 02/17/17 06:00 02/17/17 06:00 02/17/17 06:00 ICD10 Worksheet Patient Problems: Problems Problem Status Onset Cannabis use disorder, moderate, dependence Acute Insulin dependent diabetes mellitus with complications Acute Major depressive disorder, recurrent episode with mixed features Acute Posttraumatic stress disorder Acute Stimulant use disorder Acute Suicidal ideation Acute DKA (diabetic ketoacidoses) Acute
[2017-02-18] MEDS ORDERED: MELATONIN 3 MG TAB PO PRN (16:26)
[2017-02-19] MEDS: hydrOXYzine HCL 25 MG TAB PO PRN (01:04)
[2017-02-19] MEDS: MIRTAZAPINE 15 MG TAB PO SCH ×2 (01:07→20:27)
[2017-02-19] MEDS: AMOXICILLIN/CLAVULANATE POT 875/125 MG TAB PO SCH ×3 (01:41→20:27)
[2017-02-19] MEDS: BENZOCAINE (ORAJEL) GEL 11.9GM TUBE TP SCH ×4 (01:41→20:34)
[2017-02-19] MEDS: INSULIN GLARGINE 100 UNITS/ML SYRINGE SC SCH ×3 (01:42→20:33)
[2017-02-19 06:19] VITALS: BP 129/84; PULSE 95; RESP 14; TEMP 97.3; O2SAT 95
--- NOTE | 2017-02-19 09:00 | SOAPPROG ---
SOAP Progress Note Assessment/Plan: Assessment: Major Depressive Disorder, recurrent, severe with mixed features Suicidal ideation - resolved Post-Traumatic Stress Disorder Cannabis and Stimulant Use Disorders Homeless, no income, no supports Type I diabetes since childhood Recent diabetic ketoacidosis Skin wounds on ankles Severe diabetic neuropathy in legs with difficulty ambulating, uses a walker Probable Dental infection Recent hyponatremia, refused blood draw Personality Disorder - borderline traits versus Malingering to avoid homelessness Patient admitted on M1 hold from [facility] for SI to walk into traffic or overdose on insulin. Patient now voluntary. Patient has a history of recurrent substance abuse and outpatient non- compliance with insulin, medical care, and mental health care despite numerous ER visits and hospitalizations in past year for diabetic ketoacidosis and suicidal ideation; has severe medical and social stressors. Patient appears less irritable and less hopeless. Reports chronic thoughts of being related to medical and social stressors. Denies intent/plan to harm self. Plan: Continue Remeron 30mg PO QHS for depression, dose increased over weekend Continue Hydroxyzine 25mg R1jhufs PRN anxiety Continue Augmentin for probable dental infection - will ask hospitalist about switching to amoxicillin due to nausea Glucometer BID Continue insulin regimen - BID long acting insulin, TID short acting insulin with meals; insulin regimen increased over weekend Patient seen by wound care nurse last week Monitor behavior, risk of self-harm, mood/affect Discharge to medical respite when bed available. If no bed available will discharge homeless if the following arranged: 4 wheeled walker, per PT consult Medicaid transportation enrollment Assistance in obtaining urgent dental appointment Assistance in obtaining transportation to [facility] to fill prescriptions and obtain PCP appointment Case management and mental health follow up, patient will need assistance in applying for AND and obtaining a intermediate bed 02/19/17 09:00 Subjective: "I feel tired and sick" Patient reports chronic fatigue and low energy, has nausea after taking Augmentin and refused dose last night. Doesn't want to take a scheduled antacid. Reports mild jaw pain. Reports he has been in [place] less than a month and doesn't want to return to [place]. Agrees with PT consult that he needs a walker after discharge. Reports he doesn't have a dentist, PCP, or case worker in [place] and doesn't have AND benefits. Reports feeling depressed and hopeless but reports chronic thoughts of related to medical and social stressors. Denies violent thoughts or feeling agitated; denies racing thoughts. Reports improved sleep. Objective: Vital Signs Temp Pulse Resp BP Pulse Ox 36.3 C 95 14 129/84 H 95 02/19/17 06:00 02/19/17 06:00 02/19/17 06:00 02/19/17 06:00 02/19/17 06:00 Tired WM, thin, lying in bed. Speech RRR few words. Mood 'tired, feel sick" Affect restricted, less irritable than previous. Thoughts briefly organized but circumstantial, vague. Reports feeling hopeless with thoughts of being but denies suicidal plan/intent. Denies AH or paranoia or violent thoughts. Intact memory to recent events. Limited insight, questionable judgment. Patient sent to ER yesterday for blood draw and IVF after having poor PO intake with nausea. - Time Spent With Patient Time Spent With Patient: 30 minutes - Pending Discharge Pending Discharge Within 24 Hours: No Pending Discharge Within 48 Hours: Yes Pending Discharge Date: 02/21/17 Pending Discharge Time: 11:00 ICD10 Worksheet Patient Problems: Problems Problem Status Onset Cannabis use disorder, moderate, dependence Acute Insulin dependent diabetes mellitus with complications Acute Major depressive disorder, recurrent episode with mixed features Acute Posttraumatic stress disorder Acute Stimulant use disorder Acute Suicidal ideation Acute DKA (diabetic ketoacidoses) Acute Dehydration Acute Vomiting Acute
--- NOTE | 2017-02-19 09:00 | SOAPPROG ---
SOAP Progress Note Assessment/Plan: Assessment: Major Depressive Disorder, recurrent, severe with mixed features Suicidal ideation - resolved Post-Traumatic Stress Disorder Cannabis and Stimulant Use Disorders Homeless, no income, no supports Type I diabetes since childhood Recent diabetic ketoacidosis Skin wounds on ankles Severe diabetic neuropathy in legs with difficulty ambulating, uses a walker Probable Dental infection Recent hyponatremia, refused blood draw Personality Disorder - borderline traits versus Malingering to avoid homelessness Patient admitted on M1 hold from [facility] for SI to walk into traffic or overdose on insulin. Patient now voluntary. Patient has a history of recurrent substance abuse and outpatient non- compliance with insulin, medical care, and mental health care despite numerous ER visits and hospitalizations in past year for diabetic ketoacidosis and suicidal ideation; has severe medical and social stressors. Patient appears less irritable and less hopeless. Reports chronic thoughts of being related to medical and social stressors. Denies intent/plan to harm self. Plan: Continue Remeron 30mg PO QHS for depression, dose increased over weekend Continue Hydroxyzine 25mg [id number] PRN anxiety Continue Augmentin for probable dental infection - will ask hospitalist about switching to amoxicillin due to nausea Glucometer BID Continue insulin regimen - BID long acting insulin, TID short acting insulin with meals; insulin regimen increased over weekend Patient seen by wound care nurse last week Monitor behavior, risk of self-harm, mood/affect Discharge to medical respite when bed available. If no bed available will discharge homeless if the following arranged: 4 wheeled walker, per PT consult Medicaid transportation enrollment Assistance in obtaining urgent dental appointment Assistance in obtaining transportation to [facility] to fill prescriptions and obtain PCP appointment Case management and mental health follow up, patient will need assistance in applying for AND and obtaining a correction bed 02/19/17 09:00 Subjective: "I feel tired and sick" Patient reports chronic fatigue and low energy, has nausea after taking Augmentin and refused dose last night. Doesn't want to take a scheduled antacid. Reports mild jaw pain. Reports he has been in [place] less than a month and doesn't want to return to [place]. Agrees with PT consult that he needs a walker after discharge. Reports he doesn't have a dentist, PCP, or behavioral health case manager in [place] and doesn't have AND benefits. Reports feeling depressed and hopeless but reports chronic thoughts of related to medical and social stressors. Denies violent thoughts or feeling agitated; denies racing thoughts. Reports improved sleep. Objective: Vital Signs Temp Pulse Resp BP Pulse Ox 36.3 C 95 14 129/84 H 95 02/19/17 06:00 02/19/17 06:00 02/19/17 06:00 02/19/17 06:00 02/19/17 06:00 Tired WM, thin, lying in bed. Speech RRR few words. Mood 'tired, feel sick" Affect restricted, less irritable than previous. Thoughts briefly organized but circumstantial, vague. Reports feeling hopeless with thoughts of being but denies suicidal plan/intent. Denies AH or paranoia or violent thoughts. Intact memory to recent events. Limited insight, questionable judgment. Patient sent to ER yesterday for blood draw and IVF after having poor PO intake with nausea. - Time Spent With Patient Time Spent With Patient: 30 minutes - Pending Discharge Pending Discharge Within 24 Hours: No Pending Discharge Within 48 Hours: Yes Pending Discharge Date: 02/21/17 Pending Discharge Time: 11:00 ICD10 Worksheet Patient Problems: Problems Problem Status Onset Cannabis use disorder, moderate, dependence Acute Insulin dependent diabetes mellitus with complications Acute Major depressive disorder, recurrent episode with mixed features Acute Posttraumatic stress disorder Acute Stimulant use disorder Acute Suicidal ideation Acute DKA (diabetic ketoacidoses) Acute Dehydration Acute Vomiting Acute
--- NOTE | 2017-02-19 09:00 | SOAPPROG ---
SOAP Progress Note Assessment/Plan: Assessment: Major Depressive Disorder, recurrent, severe with mixed features Suicidal ideation - resolved Post-Traumatic Stress Disorder Cannabis and Stimulant Use Disorders Homeless, no income, no supports Type I diabetes since childhood Recent diabetic ketoacidosis Skin wounds on ankles Severe diabetic neuropathy in legs with difficulty ambulating, uses a walker Probable Dental infection Recent hyponatremia, refused blood draw Personality Disorder - borderline traits versus Malingering to avoid homelessness Patient admitted on M1 hold from [facility] for SI to walk into traffic or overdose on insulin. Patient now voluntary. Patient has a history of recurrent substance abuse and outpatient non- compliance with insulin, medical care, and mental health care despite numerous ER visits and hospitalizations in past year for diabetic ketoacidosis and suicidal ideation; has severe medical and social stressors. Patient appears less irritable and less hopeless. Reports chronic thoughts of being related to medical and social stressors. Denies intent/plan to harm self. Plan: Continue Remeron 30mg PO QHS for depression, dose increased over weekend Continue Hydroxyzine 25mg [id number] PRN anxiety Continue Augmentin for probable dental infection - will ask hospitalist about switching to amoxicillin due to nausea Glucometer BID Continue insulin regimen - BID long acting insulin, TID short acting insulin with meals; insulin regimen increased over weekend Patient seen by wound care nurse last week Monitor behavior, risk of self-harm, mood/affect Discharge to medical respite when bed available. If no bed available will discharge homeless if the following arranged: 4 wheeled walker, per PT consult Medicaid transportation enrollment Assistance in obtaining urgent dental appointment Assistance in obtaining transportation to [facility] to fill prescriptions and obtain PCP appointment Case management and mental health follow up, patient will need assistance in applying for AND and obtaining a senior living bed 02/19/17 09:00 Subjective: "I feel tired and sick" Patient reports chronic fatigue and low energy, has nausea after taking Augmentin and refused dose last night. Doesn't want to take a scheduled antacid. Reports mild jaw pain. Reports he has been in [place] less than a month and doesn't want to return to [place]. Agrees with PT consult that he needs a walker after discharge. Reports he doesn't have a dentist, PCP, or case manager specialist in [place] and doesn't have AND benefits. Reports feeling depressed and hopeless but reports chronic thoughts of related to medical and social stressors. Denies violent thoughts or feeling agitated; denies racing thoughts. Reports improved sleep. Objective: Vital Signs Temp Pulse Resp BP Pulse Ox 36.3 C 95 14 129/84 H 95 02/19/17 06:00 02/19/17 06:00 02/19/17 06:00 02/19/17 06:00 02/19/17 06:00 Tired WM, thin, lying in bed. Speech RRR few words. Mood 'tired, feel sick" Affect restricted, less irritable than previous. Thoughts briefly organized but circumstantial, vague. Reports feeling hopeless with thoughts of being but denies suicidal plan/intent. Denies AH or paranoia or violent thoughts. Intact memory to recent events. Limited insight, questionable judgment. Patient sent to ER yesterday for blood draw and IVF after having poor PO intake with nausea. - Time Spent With Patient Time Spent With Patient: 30 minutes - Pending Discharge Pending Discharge Within 24 Hours: No Pending Discharge Within 48 Hours: Yes Pending Discharge Date: 02/21/17 Pending Discharge Time: 11:00 ICD10 Worksheet Patient Problems: Problems Problem Status Onset Cannabis use disorder, moderate, dependence Acute Insulin dependent diabetes mellitus with complications Acute Major depressive disorder, recurrent episode with mixed features Acute Posttraumatic stress disorder Acute Stimulant use disorder Acute Suicidal ideation Acute DKA (diabetic ketoacidoses) Acute Dehydration Acute Vomiting Acute
[2017-02-19] MEDS: ONDANSETRON DISINTEGRATING 4 MG TAB PO PRN (09:12)
[2017-02-19] MEDS: INSULIN LISPRO 100 UNIT/ML SC SCH ×3 (11:14→18:04)
[2017-02-19] MEDS: PROCHLORPERAZINE MALEATE 10 MG TAB PO PRN (11:18)
[2017-02-19] MEDS: LEVOTHYROXINE 25 MCG TAB PO SCH ×2 (11:18→11:26)
[2017-02-19] MEDS: DOCUSATE SODIUM 100 MG CAP PO SCH ×2 (11:57→20:34)
[2017-02-19] MEDS: MAG HYDROX/AL HYDROX/SIMETH 30 ML UDCUP PO PRN (20:28)
[2017-02-19] MEDS: FAMOTIDINE 20 MG TAB PO PRN (23:59)
[2017-02-20] MEDS: hydrOXYzine HCL 25 MG TAB PO PRN ×2 (00:31→23:49)
[2017-02-20] MEDS: INSULIN GLARGINE 100 UNITS/ML SYRINGE SC SCH ×2 (09:12→21:35)
[2017-02-20] MEDS: INSULIN LISPRO 100 UNIT/ML SC SCH ×3 (09:13→17:24)
[2017-02-20] MEDS: BENZOCAINE (ORAJEL) GEL 11.9GM TUBE TP SCH ×3 (09:16→21:42)
[2017-02-20] MEDS: DOCUSATE SODIUM 100 MG CAP PO SCH ×2 (09:16→21:42)
[2017-02-20] MEDS: AMOXICILLIN/CLAVULANATE POT 875/125 MG TAB PO SCH (09:16)
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
[2017-02-20] MEDS: MAG HYDROX/AL HYDROX/SIMETH 30 ML UDCUP PO PRN ×2 (14:33→21:35)
[2017-02-20] MEDS: CHLORHEXIDINE GLUCONATE 15 ML UDL PO SCH ×2 (14:52→21:42)
[2017-02-20] MEDS: MIRTAZAPINE 15 MG TAB PO SCH (21:35)
[2017-02-20] MEDS: FAMOTIDINE 20 MG TAB PO PRN (23:49)
[2017-02-21] MEDS: MAG HYDROX/AL HYDROX/SIMETH 30 ML UDCUP PO PRN (04:48)
[2017-02-21] MEDS: IBUPROFEN 600 MG TAB PO PRN (09:02)
[2017-02-21] MEDS: INSULIN GLARGINE 100 UNITS/ML SYRINGE SC SCH (09:04)
[2017-02-21] MEDS: INSULIN LISPRO 100 UNIT/ML SC SCH ×2 (09:06→12:08)
[2017-02-21] MEDS: BENZOCAINE (ORAJEL) GEL 11.9GM TUBE TP SCH (09:29)
[2017-02-21] MEDS: CHLORHEXIDINE GLUCONATE 15 ML UDL PO SCH (09:47)
[2017-02-21] MEDS: DOCUSATE SODIUM 100 MG CAP PO SCH (10:39)
[2017-02-21] MEDS: ONDANSETRON DISINTEGRATING 4 MG TAB PO PRN (12:19)
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
== END 2017-02-21 13:35 | disposition home or self-care (01) | DRG 885 ==
LOC: BBEH 21:45
PROVIDERS: ADMIT Psychiatry & Neurology Behavioral Neurology & Neuropsychiatry
DX: F33.3 Major depressive disorder, recurrent, severe with psychotic symptoms (principal); E10.40 Type 1 diabetes mellitus with diabetic neuropathy, unspecified; F15.90 Other stimulant use, unspecified, uncomplicated; F17.200 Nicotine dependence, unspecified, uncomplicated; F12.90 Cannabis use, unspecified, uncomplicated; R45.851 Suicidal ideations; K04.7 Periapical abscess without sinus; E10.319 Type 1 diabetes mellitus with unspecified diabetic retinopathy without macular edema; F43.10 Post-traumatic stress disorder, unspecified; R26.9 Unspecified abnormalities of gait and mobility; Z59.0 Homelessness
CPT/HCPCS: 97161-GP; G8978-GP-CI; G8979-GP-CI; G8980-GP-CI; J1815

== ENCOUNTER 2017-02-18 17:41 | Emergency (ER) | payer MEDICAID ==
[2017-02-18] MEDS ORDERED: NS 1,000 ML IV ONE ×2 (17:43→19:53)
--- NOTE | 2017-02-18 18:06 | EDPHY ---
H & P Time Seen by Provider: 02/18/17 17:43 HPI/ROS: CHIEF COMPLAINT: Referred to emergency department from [facility] for evaluation of hyperglycemia and vomiting HISTORY OF PRESENT ILLNESS: The patient is referred to the emergency department from [facility] for evaluation of hyperglycemia and vomiting. He is current knee on a voluntary psychiatric admission for grave disability. He has a history of insulin controlled diabetes which she has not been managing well. He likely has underlying borderline personality disorder. Over the past several days the patient has had slightly elevated blood sugars and vomiting on the inpatient psychiatric unit. There has been no history of fever. The patient complains of mild epigastric pain. The patient denies fever, cough or congestion. The patient denies additional acute medical complaints aside from nausea. REVIEW OF SYSTEMS: A comprehensive 10 point review of systems is otherwise negative aside from elements mentioned in the history of present illness. Source: Patient Exam Limitations: No limitations - Medical/Surgical History Hx Asthma: No Hx Chronic Respiratory Disease: No Hx Diabetes: Yes Hx Cardiac Disease: No Hx Renal Disease: No Hx Cirrhosis: No Hx Alcoholism: No Hx HIV/AIDS: No Hx Splenectomy or Spleen Trauma: No Other PMH: DM - Social History Smoking Status: Current some day smoker - Physical Exam Exam: General Appearance: Thin male, no acute distress Eyes: Pupils equal and round no pallor or injection ENT, Mouth: Mucous membranes moist Respiratory: There are no retractions, lungs are clear to auscultation Cardiovascular: Regular rate and rhythm Gastrointestinal: Abdomen is soft and nontender, no masses, bowel sounds normal Neurological: A&O, normal motor function, normal sensory exam, normal cranial nerves Skin: Warm and dry, no rashes Musculoskeletal: Neck is supple nontender Extremities: symmetrical, full range of motion Constitutional: Initial Vital Signs Temperature (C) 36.9 C 02/18/17 17:41 Heart Rate 104 H 02/18/17 17:41 Respiratory Rate 16 02/18/17 17:41 Blood Pressure 104/77 02/18/17 17:41 O2 Sat (%) 95 02/18/17 17:41 O2 Delivery Mode Room Air Allergies/Adverse Reactions: escitalopram [From Lexapro] Allergy (Verified 02/10/17 02:24) latex Allergy (Verified 02/10/17 02:24) quetiapine [From Seroquel] Allergy (Verified 02/10/17 02:24) zolpidem [From Ambien] Allergy (Verified 02/18/17 18:43) Home Medications: Medication Instructions Recorded Acetaminophen [Tylenol 325mg (*)] 650 mg PO Q6 PRN tab 02/12/17 Insulin Detemir [Levemir] 50 unit SQ DAILY #1 btl 02/13/17 Insulin Lispro [humALOG LISPRO 100 5 unit SC TID #1 vial 02/13/17 units/ml (*)] Medical Decision Making ED Course/Re-evaluation: The patient presents to the ED with decreased appetite, nausea and reported vomiting. He has a history of diabetes. He has been receiving sliding scale insulin at the inpatient psychiatric facility. The patient's vital signs are stable and I find him to be in no acute distress. The patient had an IV established. He received 2 L of normal saline. He received 4 mg of IV Zofran. The patient's blood sugar is 350. He has no evidence of a anion gap. The patient received his regular dose of Lantus and sliding scale insulin. I re-evaluated the patient at 8:30 p.m.. He continues to be in no acute distress with a benign abdominal exam The patient's laboratory studies were recheck. His glucose has improved. His BUN has decreased. He continues to have no evidence of diabetic ketoacidosis. He did receive 2.5 mg of Haldol as the patient certainly could have a component of cannabis induced hyperemesis. The patient will be transferred back to the inpatient psychiatric unit. Differential Diagnosis: Differential diagnosis considered includes diabetic ketoacidosis, dehydration, metabolic abnormality, renal failure - Data Points Laboratory Results: Laboratory Results 02/18/17 18:10 02/18/17 22:10 02/18/17 02/18/17 02/18/17 22:10 18:10 18:10 WBC 5.77 10^3/uL 10^3/uL (3.80-9.50) RBC 4.15 10^6/uL L 10^6/uL (4.40-6.38) Hgb 11.3 g/dL L g/dL (13.7-17.5) Hct 33.7 % L % (40.0-51.0) MCV 81.2 fL L fL (81.5-99.8) MCH 27.2 pg L pg (27.9-34.1) MCHC 33.5 g/dL g/dL (32.4-36.7) RDW 14.8 % % (11.5-15.2) Plt Count 394 10^3/uL 10^3/uL (150-400) MPV 10.3 fL fL (8.7-11.7) Neut % (Auto) 50.5 % % (39.3-74.2) Lymph % (Auto) 35.5 % % (15.0-45.0) [place] % (Auto) 12.5 % % (4.5-13.0) Eos % (Auto) 0.7 % % (0.6-7.6) Baso % (Auto) 0.3 % % (0.3-1.7) Nucleat RBC Rel Count 0.0 % % (0.0-0.2) Absolute Neuts (auto) 2.91 10^3/uL 10^3/uL (1.70-6.50) Absolute Lymphs (auto) 2.05 10^3/uL 10^3/uL (1.00-3.00) Absolute Monos (auto) 0.72 10^3/uL 10^3/uL (0.30-0.80) Absolute Eos (auto) 0.04 10^3/uL 10^3/uL (0.03-0.40) Absolute Basos (auto) 0.02 10^3/uL 10^3/uL (0.02-0.10) Absolute Nucleated RBC 0.00 10^3/uL 10^3/uL (0-0.01) Immature Gran % 0.5 % % (0.0-1.1) Immature Gran # 0.03 10^3/uL 10^3/uL (0.00-0.10) Sodium 135 mEq/L mEq/L 131 mEq/L L mEq/L (134-144) (134-144) Potassium 4.4 mEq/L mEq/L 4.9 mEq/L mEq/L (3.5-5.2) (3.5-5.2) Chloride 95 mEq/L L mEq/L 88 mEq/L L mEq/L (97-110) (97-110) Carbon Dioxide 32 mEq/l H mEq/l 34 mEq/l H mEq/l (22-31) (22-31) Anion Gap 8 mEq/L mEq/L 9 mEq/L mEq/L (8-16) (8-16) BUN 27 mg/dL H mg/dL 35 mg/dL H mg/dL (7-23) (7-23) Creatinine 0.5 mg/dL L mg/dL 0.7 mg/dL mg/dL (0.7-1.3) (0.7-1.3) Estimated GFR > 60 > 60 Glucose 179 mg/dL H D mg/dL 380 mg/dL H mg/dL (70-100) (70-100) Calcium 8.3 mg/dL L mg/dL 9.0 mg/dL mg/dL (8.5-10.4) (8.5-10.4) Medications Given: Discontinued Medications Haloperidol Lactate (Haldol Injection) 2.5 mg IVP EDNOW ONE Stop: 02/18/17 22:00 Last Admin: 02/18/17 22:06 Dose: 2.5 mg Sodium Chloride (Ns) 1,000 mls @ 0 mls/hr IV EDNOW ONE; Wide Open PRN Reason: Protocol Stop: 02/18/17 17:44 Last Admin: 02/18/17 18:17 Dose: 1,000 mls Sodium Chloride (Ns) 1,000 mls @ 0 mls/hr IV ONCE ONE; Wide Open PRN Reason: Protocol Stop: 02/18/17 19:54 Last Admin: 02/18/17 20:07 Dose: 1,000 mls Insulin Glargine (Lantus Syringe) 10 units SC EDNOW ONE Stop: 02/18/17 20:24 Last Admin: 02/18/17 21:05 Dose: 10 units Insulin Human Lispro (Humalog Lispro) 5 unit SC EDNOW ONE Stop: 02/18/17 20:25 Last Admin: 02/18/17 21:05 Dose: 5 units Ondansetron HCl (Zofran) 4 mg IVP EDNOW ONE Stop: 02/18/17 19:54 Last Admin: 02/18/17 20:08 Dose: 4 mg Departure - Departure Disposition: [facility] IP Clinical Impression: Vomiting, Dehydration Condition: Good Referrals: Patient,NotPresent [Unknown] - As per Instructions
[2017-02-18 18:19] LABS: % IMMATURE GRANULYOCYTES 0.5 % (0.0-1.1); ABSOLUTE IMMATURE GRANULOCYTES 0.03 10^3/uL (0.00-0.10); ADD DIFF? NO; ADD MORPH? NO; ADD SCAN? NO; ATYPICAL LYMPHOCYTE FLAG 40 (0-99); FRAGMENT RBC FLAG 0 (0-99); HEMATOCRIT 33.7 % (40.0-51.0); HEMOGLOBIN 11.3 g/dL (13.7-17.5); LEFT SHIFT FLG 0 (0-99); LIPEMIA HEMOLYSIS FLAG 80 (0-99); MEAN CELL HEMOGLOBIN 27.2 pg (27.9-34.1); MEAN CELL HEMOGLOBIN CONCENTR. 33.5 g/dL (32.4-36.7); MEAN CELL VOLUME 81.2 fL (81.5-99.8); MEAN PLATELET VOLUME 10.3 fL (8.7-11.7); PLATELET CLUMPS FLAG 0 (0-99); PLATELET COUNT 394 10^3/uL (150-400); RED BLOOD CELL COUNT 4.15 10^6/uL (4.40-6.38); RED CELL DISTRIBUTION WIDTH 14.8 % (11.5-15.2)
[2017-02-18 18:29] LABS: ANION GAP 9 mEq/L (8-16); CARBON DIOXIDE 34 mEq/l (22-31); CHLORIDE 88 mEq/L (97-110); CREATININE 0.7 mg/dL (0.7-1.3); GLOMERULAR FILTRATION RATE > 60; GLUCOSE 380 mg/dL (70-100); POTASSIUM 4.9 mEq/L (3.5-5.2); SODIUM 131 mEq/L (134-144)
[2017-02-18 18:52] VITALS: O2SAT 95
[2017-02-18] MEDS ORDERED: ONDANSETRON 4 MG/2 ML VIAL IVP ONE (19:53)
[2017-02-18] MEDS ORDERED: INSULIN GLARGINE 100 UNITS/ML SYRINGE SC ONE (20:23)
[2017-02-18] MEDS ORDERED: INSULIN LISPRO 100 UNIT/ML SC ONE (20:24)
[2017-02-18] MEDS ORDERED: HALOPERIDOL LACT 5 MG/ML INJ IVP ONE (21:59)
[2017-02-18 22:46] LABS: ANION GAP 8 mEq/L (8-16); CALCIUM 8.3 mg/dL (8.5-10.4); CARBON DIOXIDE 32 mEq/l (22-31); CHLORIDE 95 mEq/L (97-110); CREATININE 0.5 mg/dL (0.7-1.3); GLOMERULAR FILTRATION RATE > 60; GLUCOSE 179 mg/dL (70-100); POTASSIUM 4.4 mEq/L (3.5-5.2); SODIUM 135 mEq/L (134-144)
[2017-02-18 23:37] VITALS: BP 138/90; PULSE 100; RESP 17; TEMP 97.3
== END 2017-02-19 00:16 ==
LOC: EDUNIT# → EEVIPCON 17:41
DX: E11.65 Type 2 diabetes mellitus with hyperglycemia (principal); R11.2 Nausea with vomiting, unspecified; E86.0 Dehydration
CPT/HCPCS: 96374; J1815; J2405

== ENCOUNTER 2017-02-21 19:51 | Emergency (ER) | payer MEDICAID ==
[2017-02-21] MEDS ORDERED: NS 1,000 ML IV ONE ×2 (19:55→20:53)
[2017-02-21] MEDS ORDERED: ONDANSETRON 4 MG/2 ML VIAL IVP ONE (20:00)
[2017-02-21 20:20] LABS: % IMMATURE GRANULYOCYTES 0.4 % (0.0-1.1); ABSOLUTE IMMATURE GRANULOCYTES 0.03 10^3/uL (0.00-0.10); ADD DIFF? NO; ADD MORPH? NO; ADD SCAN? NO; ATYPICAL LYMPHOCYTE FLAG 20 (0-99); FRAGMENT RBC FLAG 20 (0-99); HEMATOCRIT 41.9 % (40.0-51.0); HEMOGLOBIN 13.4 g/dL (13.7-17.5); LEFT SHIFT FLG 0 (0-99); LIPEMIA HEMOLYSIS FLAG 80 (0-99); MEAN CELL HEMOGLOBIN 26.1 pg (27.9-34.1); MEAN CELL VOLUME 81.7 fL (81.5-99.8); MEAN PLATELET VOLUME 10.4 fL (8.7-11.7); PLATELET CLUMPS FLAG 10 (0-99); PLATELET COUNT 649 10^3/uL (150-400); RED BLOOD CELL COUNT 5.13 10^6/uL (4.40-6.38)
[2017-02-21 20:21] LABS: ALANINE AMINOTRANSFERASE 50 IU/L (21-72); ALBUMIN 4.7 g/dL (3.5-5.0); ALKALINE PHOSPHATASE 145 IU/L (38-126); ANION GAP 16 mEq/L (8-16); ASPARTATE AMINOTRANSFERASE 27 IU/L (17-59); BILIRUBIN,TOTAL 0.3 mg/dL (0.1-1.4); CARBON DIOXIDE 30 mEq/l (22-31); CHLORIDE 82 mEq/L (97-110); CREATININE 0.7 mg/dL (0.7-1.3); GLOMERULAR FILTRATION RATE > 60; POTASSIUM 5.9 mEq/L (3.5-5.2); SODIUM 128 mEq/L (134-144); TOTAL PROTEIN 8.7 g/dL (6.3-8.2)
[2017-02-21 20:40] LABS: GLUCOSE 629 mg/dL (70-100)
--- NOTE | 2017-02-21 20:53 | CPEKG ---
Heart Rate: 95 RR Interval: 632 P-R Interval: 144 QRSD Interval: 74 QT Interval: 344 QTC Interval: 433 P [place]: 30 QRS [place]: 70 T Wave [place]: 68 EKG Severity - ABNORMAL ECG - EKG Impression: SINUS RHYTHM EKG Impression: ST ELEVATION SUGGESTS PERICARDITIS Electronically Signed By: Isidro Guzman 21-Feb-2017 23:06:02
[2017-02-21] MEDS ORDERED: INSULIN REGULAR HUMAN 100 UNIT/ML IVP ONE (20:54)
[2017-02-21] MEDS ORDERED: PROMETHAZINE HCL 25 MG/ML INJ IVP ONE (21:30)
[2017-02-21 22:16] LABS: PCO2 VENOUS 47 mmHg (40-44); PH VENOUS BLOOD 7.37 (7.31-7.42); PO2 VENOUS 113 mmHg (35-40); TCO2 VENOUS 28 mEq/L (23-27); VEN MEASURED OXYGEN SATURATION 98 % (65-75)
--- NOTE | 2017-02-21 23:07 | EDPHY ---
H & P Time Seen by Provider: 02/21/17 20:44 HPI/ROS: CHIEF COMPLAINT: "I feel sick ". HISTORY OF PRESENT ILLNESS: 31-year-old homeless male presents to the emergency department feeling sick. The patient is an insulin-dependent diabetic for the last 20 years and since he has been homeless, he has been noncompliant with his insulin. He was recently admitted and discharged from [facility] yesterday. His last dose of insulin was when he was in the hospital yesterday. The patient now presents feeling nauseous. No vomiting. He has not taken any insulin since yesterday. No fevers or chills. No diarrhea. No abdominal pain. He has chronic back pain which is not new for him. No reported trauma. He does not abuse drugs or alcohol. REVIEW OF SYSTEMS: Constitutional: No fever, no chills. Eyes: No double or blurry vision. ENT: No sore throat. Respiratory: No cough, no shortness of breath. Cardiac: No chest pain. Gastrointestinal: Nausea. No abdominal pain, vomiting or diarrhea. Genitourinary: No dysuria. Musculoskeletal: No neck or back pain. Skin: No rashes. Neurological: No headache. Past Medical/Surgical History: Insulin-dependent diabetic Social History: Homeless Smoking Status: Current some day smoker Physical Exam: General Appearance: Alert, no distress. Afebrile. Vital signs are stable. Eyes: Pupils equal and round. Extraocular motions are all intact. ENT: Mouth: Mucous membranes moist. Respiratory: No wheezing, rhonchi, or rales, lungs are clear to auscultation. Cardiovascular: Regular rate and rhythm. Gastrointestinal: Abdomen is soft and nontender, no masses, no rebound or guarding, bowel sounds normal. Neurological: Alert and oriented x 3, cranial nerves II through XII grossly intact Skin: Healing open wounds to bilateral lower extremities. No surrounding redness or signs of cellulitis. No warmth. Full range of motion of his upper lower extremities. Musculoskeletal: Nontender to palpate along the cervical, thoracic or lumbar spine. Neck is supple. Extremities: Full range of motion and no peripheral edema. Psychiatric: Patient is oriented X 3, there is no agitation. Constitutional: Initial Vital Signs Heart Rate 105 H 02/21/17 20:02 Respiratory Rate 18 02/21/17 20:02 Blood Pressure 178/105 H 02/21/17 20:02 O2 Sat (%) 100 02/21/17 20:02 O2 Delivery Mode Room Air Allergies/Adverse Reactions: escitalopram [From Lexapro] Allergy (Verified 02/10/17 02:24) latex Allergy (Verified 02/10/17 02:24) quetiapine [From Seroquel] Allergy (Verified 02/10/17 02:24) zolpidem [From Ambien] Allergy (Verified 02/18/17 18:43) Home Medications: Medication Instructions Recorded Insulin Glargine [Lantus 100 10 unit SC BID 30 Days #30 ml 02/21/17 UNITS/ML (*)] Insulin Lispro [Humalog] 5 unit SQ TID #30 cartridge 02/21/17 Mirtazapine [Remeron] 30 mg PO HS #30 tab 02/21/17 Medical Decision Making ED Course/Re-evaluation: 31-year-old male presents to the emergency department not feeling well. He is an insulin-dependent diabetic. His initial blood sugar was 629, however his CO2 was 30. The case was discussed with Dr. Isidro Guzman, secondary supervising physician, who did not directly evaluate the patient but agrees with treatment and plan. Patient received 2 L of IV normal saline, 10 units of IV regular insulin. His blood sugar was checked 2 hours later and was 412. The patient does not have evidence of diabetic ketoacidosis. He has felt nauseous. He was given Zofran as well as Phenergan IV. Patient had no vomiting in the emergency department. This patient is homeless and does require his insulin. [facility] if [facility] can be seen in the morning so that they can help to arrange for him to get his medications. The patient will be given 10 units of Lantus insulin upon discharge. Patient was also given food. He was told to [facility] tomorrow morning or he may follow up with 1 of our briefcase sewer in the emergency department tomorrow during the day to help for him to arrange to get his medication. He understands that he needs close follow-up with primary care provider and he should not continue to come to the emergency department for his medications. He was given information for [facility]. Differential Diagnosis: Including but not limited to diabetic ketoacidosis, hyperglycemia, noncompliant with medication, electrolyte abnormality - Data Points Laboratory Results: Laboratory Results 02/21/17 19:45 02/21/17 19:45 02/21/17 02/21/17 02/21/17 23:33 22:06 22:04 WBC RBC Hgb POC Hgb 10.9 gm/dL L gm/dL 11.6 gm/dL L gm/dL (13.7-17.5) (13.7-17.5) Hct POC Hct 32 % L % 34 % L % (40-51) (40-51) MCV MCH MCHC RDW Plt Count MPV Neut % (Auto) Lymph % (Auto) [place] % (Auto) Eos % (Auto) Baso % (Auto) Nucleat RBC Rel Count Absolute Neuts (auto) Absolute Lymphs (auto) Absolute Monos (auto) Absolute Eos (auto) Absolute Basos (auto) Absolute Nucleated RBC Immature Gran % Immature Gran # Puncture Site VENOUS Patient Temperature 37.0 DEGREES DEGREES VBG pH 7.37 (7.31-7.42) VBG HCO3 27 mEQ/L H mEQ/L (22-26) VBG Total CO2 28 mEq/L H mEq/L (23-27) VBG O2 Saturation 98 % H % (65-75) VBG Base Excess 1.6 mEq/L mEq/L (-2.5-2.5) Mixed VBG pCO2 47 mmHg H mmHg (40-44) Mixed VBG pO2 113 mmHg H mmHg (35-40) POC Sodium 134 mEq/L mEq/L 136 mEq/L mEq/L (134-144) (134-144) Sodium POC Potassium 4.1 mEq/L mEq/L 4.4 mEq/L mEq/L (3.3-5.0) (3.3-5.0) Potassium POC Chloride 96 mEq/L L mEq/L 93 mEq/L L mEq/L (97-110) (97-110) Chloride Carbon Dioxide Anion Gap POC BUN 17 mg/dL mg/dL 21 mg/dL mg/dL (7-23) (7-23) BUN Creatinine POC Creatinine 0.5 mg/dL L mg/dL 0.6 mg/dL L mg/dL (0.7-1.3) (0.7-1.3) Estimated GFR Glucose POC Glucose 300 mg/dL H mg/dL 417 mg/dL H mg/dL (70-100) (70-100) Calcium Total Bilirubin AST ALT Alkaline Phosphatase Total Protein Albumin Beta-Hydroxybutyrate 02/21/17 02/21/17 02/21/17 21:59 19:45 19:45 WBC RBC Hgb POC Hgb Hct POC Hct MCV MCH MCHC RDW Plt Count MPV Neut % (Auto) Lymph % (Auto) [place] % (Auto) Eos % (Auto) Baso % (Auto) Nucleat RBC Rel Count Absolute Neuts (auto) Absolute Lymphs (auto) Absolute Monos (auto) Absolute Eos (auto) Absolute Basos (auto) Absolute Nucleated RBC Immature Gran % Immature Gran # Puncture Site Patient Temperature VBG pH VBG HCO3 VBG Total CO2 VBG O2 Saturation VBG Base Excess Mixed VBG pCO2 Mixed VBG pO2 POC Sodium Sodium 128 mEq/L L mEq/L (134-144) POC Potassium Potassium 5.9 mEq/L H mEq/L (3.5-5.2) POC Chloride Chloride 82 mEq/L L D mEq/L (97-110) Carbon Dioxide 30 mEq/l mEq/l (22-31) Anion Gap 16 mEq/L mEq/L (8-16) POC BUN BUN 26 mg/dL H mg/dL (7-23) Creatinine 0.7 mg/dL mg/dL (0.7-1.3) POC Creatinine Estimated GFR > 60 Glucose 629 mg/dL H* mg/dL (70-100) POC Glucose > 350 mg/dL H mg/dL (70-100) Calcium 10.0 mg/dL D mg/dL (8.5-10.4) Total Bilirubin 0.3 mg/dL mg/dL (0.1-1.4) AST 27 IU/L IU/L (17-59) ALT 50 IU/L IU/L (21-72) Alkaline Phosphatase 145 IU/L H IU/L (38-126) Total Protein 8.7 g/dL H g/dL (6.3-8.2) Albumin 4.7 g/dL g/dL (3.5-5.0) Beta-Hydroxybutyrate 0.15 mmol/L mmol/L (0.02-0.27) 02/21/17 19:45 WBC 7.40 10^3/uL 10^3/uL (3.80-9.50) RBC 5.13 10^6/uL 10^6/uL (4.40-6.38) Hgb 13.4 g/dL L g/dL (13.7-17.5) POC Hgb Hct 41.9 % % (40.0-51.0) POC Hct MCV 81.7 fL fL (81.5-99.8) MCH 26.1 pg L pg (27.9-34.1) MCHC 32.0 g/dL L g/dL (32.4-36.7) RDW 15.0 % % (11.5-15.2) Plt Count 649 10^3/uL H 10^3/uL (150-400) MPV 10.4 fL fL (8.7-11.7) Neut % (Auto) 44.7 % % (39.3-74.2) Lymph % (Auto) 44.9 % % (15.0-45.0) [place] % (Auto) 9.1 % % (4.5-13.0) Eos % (Auto) 0.5 % L % (0.6-7.6) Baso % (Auto) 0.4 % % (0.3-1.7) Nucleat RBC Rel Count 0.0 % % (0.0-0.2) Absolute Neuts (auto) 3.31 10^3/uL 10^3/uL (1.70-6.50) Absolute Lymphs (auto) 3.32 10^3/uL H 10^3/uL (1.00-3.00) Absolute Monos (auto) 0.67 10^3/uL 10^3/uL (0.30-0.80) Absolute Eos (auto) 0.04 10^3/uL 10^3/uL (0.03-0.40) Absolute Basos (auto) 0.03 10^3/uL 10^3/uL (0.02-0.10) Absolute Nucleated RBC 0.00 10^3/uL 10^3/uL (0-0.01) Immature Gran % 0.4 % % (0.0-1.1) Immature Gran # 0.03 10^3/uL 10^3/uL (0.00-0.10) Puncture Site Patient Temperature VBG pH VBG HCO3 VBG Total CO2 VBG O2 Saturation VBG Base Excess Mixed VBG pCO2 Mixed VBG pO2 POC Sodium Sodium POC Potassium Potassium POC Chloride Chloride Carbon Dioxide Anion Gap POC BUN BUN Creatinine POC Creatinine Estimated GFR Glucose POC Glucose Calcium Total Bilirubin AST ALT Alkaline Phosphatase Total Protein Albumin Beta-Hydroxybutyrate Medications Given: Discontinued Medications Sodium Chloride (Ns) 1,000 mls @ 0 mls/hr IV ONCE ONE PRN Reason: Wide Open Stop: 02/21/17 19:56 Last Admin: 02/21/17 20:02 Dose: 1,000 mls Sodium Chloride (Ns) 1,000 mls @ 0 mls/hr IV ONCE ONE; Wide Open PRN Reason: Protocol Stop: 02/21/17 20:54 Last Admin: 02/21/17 21:08 Dose: 1,000 mls Insulin Human Regular (Humulin R) 7 unit IVP EDNOW ONE Stop: 02/21/17 20:55 Last Admin: 02/21/17 21:08 Dose: 7 unit Ondansetron HCl (Zofran) 4 mg IVP EDNOW ONE Stop: 02/21/17 20:01 Last Admin: 02/21/17 20:02 Dose: 4 mg Promethazine HCl (Phenergan) 12.5 mg IVP ONCE ONE Stop: 02/21/17 21:31 Last Admin: 02/21/17 21:39 Dose: 12.5 mg Point of Care Test Results: 02/21/17 02/21/17 02/21/17 21:59 22:04 23:33 POC Sodium 136 134 POC Potassium 4.4 4.1 POC Chloride 93 L 96 L POC BUN 21 17 POC Creatinine 0.6 L 0.5 L POC Glucose > 350 H 417 H 300 H Departure - Departure Disposition: Home, Routine, Self-Care Clinical Impression: Hyperglycemia, Noncompliance with diabetes treatment Condition: Good Instructions: Diabetic Hyperglycemia (ED), Type 1 Diabetes in Adults (ED) Additional Instructions: Your given 10 units of regular insulin at 8:00 p.m.. You also given 10 units of Lantus insulin when you were discharged at 12:30 a.m.. [facility] to [facility] clinic to arrange follow-up appointment and to discuss obtaining your insulin. You may also talk with one of our briefcase sewer who are here during the day between 9am and 5pm. Referrals: [facility],. [Clinic] - 1 day without fail (You should go to the homeless walking clinic tomorrow morning at 8:30 a.m..)
[2017-02-22] MEDS ORDERED: INSULIN GLARGINE 100 UNITS/ML SYRINGE SC ONE (00:12)
[2017-02-22 00:42] VITALS: BP 101/68; PULSE 97; RESP 16; TEMP 98.6; O2SAT 97
== END 2017-02-22 00:41 | disposition home or self-care (01) ==
LOC: EDUNIT#
DX: E11.649 Type 2 diabetes mellitus with hypoglycemia without coma (principal); F17.200 Nicotine dependence, unspecified, uncomplicated; E86.9 Volume depletion, unspecified; Z91.040 Latex allergy status; Z79.4 Long term (current) use of insulin; Z91.14 Patient's other noncompliance with medication regimen
CPT/HCPCS: 82947-QW; 96374; J1815; J2405; J2550